=== PATIENT | female | born 1985 | race Asian ===

== ENCOUNTER → 2018-06-11 11:23 | Outpatient (CLI) | payer BC, SELFPAY ==
[2018-06-11 12:11] LABS: Monoscreen (Rapid) Negative (Negative)
[2018-06-11 12:24] LABS: Basophils % 0.5 % (0.1-2.0); Eosinophils # 0.1 K/mm3 (0.0-0.4); Eosinophils % 0.9 % (0.1-12.0); Hematocrit 42.1 % (37.0-47.0); Hemoglobin 14.3 g/dL (12.2-16.2); Lymphocytes # 0.9 K/mm3 (0.7-4.5); Lymphocytes % 16.1 K/mm3 (10-50); Mean Corpuscular HGB Conc 33.9 g/dL (31.8-35.4); Mean Corpuscular Hemoglobin 29.9 pg (27.0-31.2); Mean Corpuscular Volume 88.3 fl (81-99); Mean Platelet Volume 7.3 fl (7.4-10.4); Monocytes # 0.3 K/mm3 (0.1-1.0); Monocytes % 5.5 % (1.7-9.3); Neutrophils # 4.5 K/mm3 (1.8-7.8); Neutrophils % 77.1 % (37.0-80.0); Platelet Count 225 K/mm3 (142-424); Red Blood Count 4.76 M/mm3 (4.20-5.40); Red Cell Distribution Width 13.1 % (11.5-17.5); White Blood Count 5.8 K/mm3 (4.8-10.8)
[2018-06-11 12:46] LABS: Alanine Aminotransferase 43 U/L (12-78); Albumin Level 3.5 gm/dL (3.4-5.0); Albumin/Globulin Ratio 1.1 (1.1-1.8); Alkaline Phosphatase 78 U/L (46-116); Anion Gap 9.9 mEq/L (5-15); Aspartate Amino Transferase 18 U/L (15-37); Bilirubin,Total 0.7 mg/dL (0.2-1.0); Blood Urea Nitrogen 6 mg/dL (7-18); Calcium 8.7 mg/dL (8.5-10.1); Carbon Dioxide 29 mmol/L (21.0-32.0); Chloride 106 mmol/L (98-107); Creatinine,Serum 0.73 mg/dL (0.55-1.02); Estimated Glomerular Filt Rate 91 ml/min (>60); GFR (African American) 110 ML/MIN (>60); Globulin 3.3 gm/dl (1.3-3.2); Glucose 94 mg/dL (74-106); Potassium 3.9 mmoL/L (3.5-5.1); Sodium 141 mmol/L (136-145); Total Protein,Serum 6.8 gm/dL (6.4-8.2)
[2018-06-13 07:29] LABS: Epstein-Barr Virus Early Ag Ab <9.0 U/mL (0.0-8.9)
== END ==
PROVIDERS: PCP Emergency Medicine; Visit Provider Nurse Practitioner Family
DX: R59.9 Enlarged lymph nodes, unspecified (principal)
CPT/HCPCS: 36415; 80053; 85025; 86318; 86663

== ENCOUNTER → 2018-08-18 13:01 | Outpatient (CLI) | payer BC, SELFPAY ==
[2018-08-18 13:16] LABS: Basophils # 0.1 K/mm3 (0-0.2); Basophils % 1.1 % (0.1-2.0); Eosinophils # 0.4 K/mm3 (0.0-0.4); Eosinophils % 5.9 % (0.1-12.0); Hematocrit 49.3 % (37.0-47.0); Lymphocytes # 3.2 K/mm3 (0.7-4.5); Lymphocytes % 42.4 % (10-50); Mean Corpuscular HGB Conc 32.4 g/dL (31.8-35.4); Mean Corpuscular Hemoglobin 29.7 pg (27.0-31.2); Mean Corpuscular Volume 91.7 fl (81-99); Mean Platelet Volume 6.9 fl (7.4-10.4); Monocytes # 0.3 K/mm3 (0.1-1.0); Monocytes % 4.4 % (1.7-9.3); Neutrophils # 3.4 K/mm3 (1.8-7.8); Neutrophils % 46.2 % (37.0-80.0); Platelet Count 314 K/mm3 (142-424); Red Blood Count 5.38 M/mm3 (4.20-5.40); Red Cell Distribution Width 13.2 % (11.5-17.5); White Blood Count 7.5 K/mm3 (4.8-10.8)
[2018-08-18 16:29] LABS: Anion Gap 15.3 mEq/L (5-15); Blood Urea Nitrogen 7 mg/dL (7-18); Calcium 8.9 mg/dL (8.5-10.1); Carbon Dioxide 26 mmol/L (21.0-32.0); Chloride 101 mmol/L (98-107); Estimated Glomerular Filt Rate 95 ml/min (>60); GFR (African American) 115 ML/MIN (>60); Glucose 71 mg/dL (74-106); Potassium 4.3 mmoL/L (3.5-5.1); Sodium 138 mmol/L (136-145)
== END ==
PROVIDERS: Visit Provider Otolaryngology
DX: Z01.818 Encounter for other preprocedural examination (principal); L72.0 Epidermal cyst
CPT/HCPCS: 36415; 80048; 85025

== ENCOUNTER → 2020-01-09 13:46 | Outpatient (CLI) | payer BC, SELFPAY ==
[2020-01-09 17:37] LABS: Benzodiazepines Screen,Urine Negative ng/ml (<200)
[2020-01-09 17:38] LABS: Amphetamine/Metha Screen,Urine Negative ng/ml (<1000); Barbiturates Screen,Urine Negative ng/ml (<200)
[2020-01-09 17:39] LABS: Cannabinoid Screen,Urine Negative ng/ml (<50)
[2020-01-09 17:40] LABS: Cocaine Screen,Urine Negative ng/ml (<300); Methadone Screen,Urine Negative ng/ml (<300)
[2020-01-09 17:42] LABS: Opiate Screen,Urine Negative ng/ml (<300); Phencyclidine Screen,Urine Negative ng/ml (<25)
== END ==
PROVIDERS: Visit Provider Nurse Practitioner Family
DX: Z79.899 Other long term (current) drug therapy (principal)
CPT/HCPCS: 80305

== ENCOUNTER → 2020-08-19 14:29 | Outpatient (CLI) | payer BC, SELFPAY ==
--- NOTE | 2020-08-19 14:29 | MR_ITS ---
PROCEDURE: MR KNEE RT WO CON CLINICAL INDICATION: R knee pain knee pain and clicking in knee. knee locks up. pain when bending and extending. no prior. COMPARISON: No exams were available for comparison TECHNIQUE: Routine multiplanar multi echo sequences are performed without gadolinium enhancement. FINDINGS: Cruciate ligaments, collateral ligaments, quadriceps tendon and patellar tendon have an unremarkable appearance. No evidence meniscal tear. There is some minimal thinning of the patellar cartilage along its lower and lateral aspect with some subchondral cystic changes in the posterior aspect of the patella at this area. There is a small amount fluid in the knee joint. The patellofemoral ligaments appear intact. IMPRESSION: 1. No evidence of internal derangement. 2. There is some thinning of the patellar cartilage inferiorly and laterally with some subchondral cystic changes of the patella at this area consistent with some mild osteoarthritic change. Minimal amount fluid noted within the knee joint. Dictated by: Lionel Munoz MD 08/21/2020 09:23 Lionel Munoz MD in [place] 08/21/2020 09:23
== END ==
PROVIDERS: PCP Nurse Practitioner Family; Visit Provider Nurse Practitioner Family
DX: M25.561 Pain in right knee (principal)
CPT/HCPCS: 73721

== ENCOUNTER → 2020-08-31 14:53 | Outpatient (CLI) | payer BC, SELFPAY ==
--- NOTE | 2020-08-31 14:56 | XR_ITS ---
PROCEDURE: XR KNEE RT 4V CLINICAL INDICATION: right knee pain COMPARISON: No exams were available for comparison FINDINGS: No fracture or dislocation. No lytic or blastic change. There is normal mineralization. The joint spaces are well-preserved. No significant degenerative/arthritic changes. No erosive changes evident. Other findings:None. IMPRESSION: No acute findings. Dictated by: Dr. Jarad Holder MD 08/31/2020 15:29 Dr. Jarad Holder MD in [place] 08/31/2020 15:29
== END ==
PROVIDERS: PCP Emergency Medicine; Visit Provider Orthopaedic Surgery
DX: M25.561 Pain in right knee (principal)
CPT/HCPCS: 73564

== ENCOUNTER → 2021-10-25 08:38 | Outpatient (CLI) | payer BC, SELFPAY ==
--- NOTE | 2021-10-25 08:46 | US_ITS ---
FINAL REPORT CLINICAL HISTORY: HYPERTHYROIDISM FINDINGS: THYROID ULTRASOUND Sonographic images of the thyroid was obtained. The right lobe of the thyroid measures 1.8 x 4.6 x 2.0 cm. The left lobe of the thyroid measures 1.3 x 4.4 x 1.7 cm. The isthmus measures 5 mm. There are multiple bilateral hypoechoic nodules: There is a dominant nodule in the right lobe measuring 1.5 x 1.1 x 1.2 cm, TI-RADS 4. There is a 4 x 4 x 2 mm nodule in the left lobe, TI-RADS 4. There is a 4 x 4 x 3 mm nodule in the left lobe, TI-RADS 4. There is a 7 x 6 x 5 mm nodule in the left lobe, TI-RADS 4. IMPRESSION: Multiple bilateral nodules as described. Recommend biopsy for the dominant nodule in the right lobe. No follow-up required for the left lobe nodules. Reviewed, Interpreted and Dictated by Billy Lanitgua MD Transcribed by Shavonne Ellis Authenticated by Billy Lantigua MD on 10/25/2021 11:17:16 AM [facility]
== END ==
PROVIDERS: PCP Nurse Practitioner Family; Visit Provider Nurse Practitioner Family
DX: E05.90 Thyrotoxicosis, unspecified without thyrotoxic crisis or storm (principal)
CPT/HCPCS: 76536

== ENCOUNTER → 2021-11-08 08:13 | Outpatient (CLI) | payer BC, SELFPAY ==
--- NOTE | 2021-11-08 | US_ITS ---
FINAL REPORT CLINICAL HISTORY: .fna rt thyroid-- evi drake FINDINGS: Ultrasound guided thyroid biopsy. HISTORY: Thyroid mass. PROCEDURE: After informed consent was obtained and a time-out was performed, the patient was prepped and draped in usual sterile fashion over the anterior right neck. Utilizing local anesthesia and sterile technique with a 25-gauge needle, access to the lesion was obtained. Four passes were made. The patient received no conscious sedation. The patient tolerated procedure well and left the department in good condition. IMPRESSION: Status post ultrasound guided biopsy of a thyroid nodule without immediate complication. Reviewed, Interpreted and Dictated by Kurtis Wood III, MD Transcribed by MARCIAL Virgen Authenticated by Kurtis Wood III, MD on 11/08/2021 11:42:[address] [facility]
== END ==
PROVIDERS: PCP Nurse Practitioner Family; Visit Provider Nurse Practitioner Family
DX: E04.1 Nontoxic single thyroid nodule (principal)
CPT/HCPCS: 10005; 76536

== ENCOUNTER → 2022-06-07 10:30 | Outpatient (CLI) | payer BC, SELFPAY ==
--- NOTE | 2022-06-07 10:33 | XR_ITS ---
FINAL REPORT CLINICAL HISTORY: rt shoulder pain, no injury FINDINGS: Right shoulder Four views were obtained. There is no acute fracture or dislocation. The joint spaces appear normal. No soft tissue abnormality is identified. IMPRESSION: No acute process. Reviewed, Interpreted and Dictated by Kurtis Wood III, MD Transcribed by Marlen Johnson Authenticated and [facility]
== END ==
PROVIDERS: PCP Emergency Medicine; Visit Provider Orthopaedic Surgery
DX: M25.511 Pain in right shoulder (principal)
CPT/HCPCS: 73030

== ENCOUNTER → 2022-06-21 09:32 | Outpatient (CLI) | payer BC, SELFPAY ==
--- NOTE | 2022-06-21 09:32 | MR_ITS ---
FINAL REPORT CLINICAL HISTORY: rt shoulder pain WITH PAIN RADIATING UP NECK AND DOWN ARM TO ELBOW. NO INJURY OR TRAUMA. PAIN WHEN MOVING ARM. WEAKNESS IN ARM. FINDINGS: Multiplanar MR imaging of the right shoulder was performed without contrast. There is a partial thickness articular surface tear of the supraspinatus tendon involving less than 50%. No full-thickness rotator cuff tear is identified. There is mild AC joint arthrosis. A small amount of fluid is seen in the subacromial/subdeltoid bursa. The glenoid labrum is intact. The long head of the biceps tendon is intact. No significant glenohumeral joint effusion is seen. There is no evidence of fracture or dislocation. The musculature is intact. There is no evidence of soft tissue mass. IMPRESSION: Partial thickness articular surface tear of the supraspinatus tendon. Reviewed, Interpreted and Dictated by Kurtis Wood III, MD Transcribed by Marlen Johnson Authenticated and [facility]
== END ==
PROVIDERS: PCP Emergency Medicine; Visit Provider Physician Assistant Surgical
DX: M75.41 Impingement syndrome of right shoulder (principal)
CPT/HCPCS: 73221

== ENCOUNTER 2022-07-20 08:00 | Outpatient (RCR) | payer BC, SELFPAY ==
--- NOTE | 2022-06-30 11:30 | HMH.OTOPEV ---
OT Inpatient Evaluation Rehab OT Outpatient Eval Start: 06/30/22 11:20 Freq: Status: Active Protocol: Document 06/30/22 11:20 ARNOLDO (Rec: 06/30/22 11:29 ARNOLDO [id number]) E-signed By Fortino Schroeder, OT Outpatient Therapy Subjective History Subjective History Pt is a 37 year old female who reports to therapy for initial evaluation. Pt explains her right shoulder ( dominant side) became painful in May 2022 without any type of injury. Pt did seek ortho consult and was provided a steroid injection in the right shoulder on 06/07/22. She did not have relief with the injection. She received a MRI on 06/21/22 with the dx of Partial thickness articular surface tear of the supraspinatus tendon. Pt was then referred to outpatient OT services. Pt does demonstrate with decreased AROM and strength at right shoulder. She also reports her pain remains at a 7/10 majority of the time. Pt will continue to be seen twice a week in order to tx right shoulder deficits. Chief Complaint Pain,Stiff,Weakness Symptom Type Ache,Throb,Sharp,Dull Symptoms Relieved By Nothing Symptoms Aggravated By Physical Activity,Lifting Prior Functional Limitations None Current Functional Limitations Reaching,Lifting,Housework, Driving,Sleeping,Recreation Activity Symptom Description Constant but Variable Level of pain today (0-10) 7 Pain scale - at its best (0-10) 5 Pain scale - at its worst (0-10) 10 Shoulder/Elbow Eval Shoulder Objective Measurements Shoulder ROM Right Shoulder Abduction Active Range of 85 degrees Motion (degrees) Shoulder Flexion Active Range of Motion 100 degrees (degrees) Query Text: Shoulder External Rotation Active Range 30 degrees of Motion (degrees) Shoulder Internal Rotation Active Range 20 degrees of Motion (degrees) pain with active ROM shoulder exam right standard pain with passive ROM shoulder exam right
== END 2022-07-20 08:05 | disposition home or self-care (01) ==
LOC: OT 08:00
PROVIDERS: PCP Emergency Medicine; Visit Provider Orthopaedic Surgery
DX: M75.111 Incomplete rotator cuff tear or rupture of right shoulder, not specified as traumatic (principal)
CPT/HCPCS: 97010; 97014; 97035; 97110; 97140; 97166; G0283

== ENCOUNTER → 2022-07-27 07:32 | Outpatient (CLI) | payer BC, SELFPAY ==
--- NOTE | 2022-07-27 07:32 | MR_ITS ---
FINAL REPORT CLINICAL HISTORY: Neck pain, right arm numbness x2 months. no injury FINDINGS: Multiplanar MR imaging of the cervical spine was performed without contrast. On the sagittal T2-weighted images, disc degeneration is seen at multiple levels. There is no evidence of fracture. There is kyphosis centered at C4-5. The cervical spinal cord has an unremarkable appearance without evidence of mass, edema or syrinx. No significant canal stenosis is identified. The cervicomedullary junction is normal. C2-3: There is no significant canal stenosis or neural foraminal narrowing. C3-4: There is no significant canal stenosis or neural foraminal narrowing. C4-5: There is a severe right uncovertebral osteophyte. There is mild right neural foraminal narrowing. C5-6: There is a disc osteophyte complex. There is severe right and mild left neural foraminal narrowing. C6-7: There is no significant canal stenosis or neural foraminal narrowing. C7-T1: There is no significant canal stenosis or neural foraminal narrowing. Incidental note is made of multiple cystic nodules in the thyroid. IMPRESSION: Multilevel degenerative disc disease most pronounced at the C4-5 and C5-6. Reviewed, Interpreted and Dictated by Kurtis Wodo III, MD Transcribed by Carrol Peres Authenticated and [facility]
== END ==
PROVIDERS: PCP Emergency Medicine; Visit Provider Physician Assistant Surgical
DX: M54.12 Radiculopathy, cervical region (principal)
CPT/HCPCS: 72141; 76376

== ENCOUNTER → 2023-01-03 23:30 | Outpatient (CLI) | payer BC, SELFPAY | PROVIDERS: PCP Student in an Organized Health Care Education/Training Program; Visit Provider Student in an Organized Health Care Education/Training Program | DX: J32.9 Chronic sinusitis, unspecified (principal) | CPT/HCPCS: 87070 ==

== ENCOUNTER → 2023-05-30 23:23 | Outpatient (CLI) | payer BC, SELFPAY ==
[2023-05-30 18:13] LABS: Basophils # 0.1 K/mm3 (0-0.2); Basophils % 1.2 % (0.1-2.0); Eosinophils # 0.3 K/mm3 (0.0-0.4); Eosinophils % 3.9 % (0.1-12.0); Hematocrit 48.3 % (37.0-47.0); Hemoglobin 15.5 g/dL (12.2-16.2); Lymphocytes # 2.7 K/mm3 (0.7-4.5); Lymphocytes % 38.6 % (10-50); Mean Corpuscular HGB Conc 32.1 g/dL (31.8-35.4); Mean Corpuscular Hemoglobin 29.2 pg (27.0-31.2); Mean Platelet Volume 8.6 fl (7.4-10.4); Monocytes # 0.3 K/mm3 (0.1-1.0); Monocytes % 4.8 % (1.7-9.3); Neutrophils # 3.6 K/mm3 (1.8-7.8); Neutrophils % 51.5 % (37.0-80.0); Platelet Count 343 K/mm3 (142-424); Red Cell Distribution Width 13.1 % (11.5-17.5)
[2023-05-30 18:34] LABS: Alanine Aminotransferase 104 U/L (12-78); Albumin Level 4.3 g/dl (3.5-5.0); Albumin/Globulin Ratio 1.3 (1.1-1.8); Alkaline Phosphatase 85 U/L (38-126); Anion Gap 15.7 mEq/L (5-15); Aspartate Amino Transferase 67 U/L (14-36); Bilirubin,Total 0.6 mg/dl (0.2-1.3); Blood Urea Nitrogen 9 mg/dl (7-17); Calcium 9.1 mg/dl (8.4-10.2); Carbon Dioxide 24 mmol/L (22.0-30.0); Chloride 106 mmol/L (98-107); Chol/HDL Ratio 7.3 (1-3.5); Cholesterol 284 mg/dl (140-200); Estimated Glomerular Filt Rate 111 ml/min (>60); GFR (African American) 134 ML/MIN (>60); Globulin 3.3 g/dL (1.3-3.2); Glucose 122 mg/dl (74-100); HDL Cholesterol 39 mg/dl (40-60); Potassium 4.7 mmoL/L (3.5-5.1); Sodium 141 mmol/L (136-145); Total Protein,Serum 7.6 g/dl (6.3-8.2); Triglycerides 301 mg/dl (30-150); VLDL Cholesterol 60 mg/dL (0-40)
[2023-05-30 18:46] LABS: Direct LDL Cholesterol 179.52 mg/dL (100-129)
[2023-05-30 18:52] LABS: 25-OH Vitamin D, Total 24.9 ng/mL (30-100); Free T4 (Free Thyroxine) 1.21 ng/dl (0.78-2.19)
[2023-05-30 19:05] LABS: Thyroid Stimulating Hormone 0.58 uIU/mL (0.465-4.68)
== END ==
PROVIDERS: PCP Student in an Organized Health Care Education/Training Program; Visit Provider Student in an Organized Health Care Education/Training Program
DX: E66.9 Obesity, unspecified (principal); E55.9 Vitamin D deficiency, unspecified; Z13.29 Encounter for screening for other suspected endocrine disorder; Z68.31 Body mass index [BMI] 31.0-31.9, adult; Z79.899 Other long term (current) drug therapy
CPT/HCPCS: 80053; 80061; 82306; 84439; 84443; 85025

== ENCOUNTER → 2023-06-01 09:16 | Outpatient (CLI) | payer BC, SELFPAY ==
[2023-06-02 10:12] LABS: HBsAg Screen Negative (Negative); HCV Ab Non Reactive (Non Reactive); Hep A Ab, IGM Negative (Negative); Hep B Core Ab, IgM Negative (Negative)
== END ==
PROVIDERS: PCP Student in an Organized Health Care Education/Training Program; Visit Provider Student in an Organized Health Care Education/Training Program
DX: R74.8 Abnormal levels of other serum enzymes (principal)
CPT/HCPCS: 36415; 80074

== ENCOUNTER 2023-06-11 18:02 | Emergency (ER) | payer BC, SELFPAY ==
[2023-06-11 18:03] VITALS: BP 164/96; PULSE 99; RESP 16; TEMP 36.5; O2SAT 100; BMI 32.5
[2023-06-11 18:36] LABS: Microscopic, Urine URINE MICROSCOPIC (MICROSCOPIC)
[2023-06-11 18:38] LABS: Appearance,Urine CLEAR (Clear); Bilirubin,Urine Negative (Negative); Blood, Urine TRACE-I (Negative); Color,Urine YELLOW (Yellow); Glucose,Urine (UA) Negative (Negative); Ketones,Urine Negative (Negative); Leukocyte Esterase,Urine Negative (Negative); Nitrate,Urine Negative (Negative); Protein,Urine Negative (Negative); Specific Gravity, Urine 1.025 (1.005-1.030); Urobilinogen,Urine 0.2 EU/dl (0.2)
[2023-06-11 18:39] LABS: Chloride 104 mmol/L (98-107); Sodium 138 mmol/L (136-145)
[2023-06-11 18:40] LABS: Basophils # 0.1 K/mm3 (0-0.2); Basophils % 0.9 % (0.1-2.0); Eosinophils # 0.3 K/mm3 (0.0-0.4); Eosinophils % 3.3 % (0.1-12.0); Hematocrit 46.3 % (37.0-47.0); Hemoglobin 15.5 g/dL (12.2-16.2); Lymphocytes # 4.7 K/mm3 (0.7-4.5); Lymphocytes % 47.8 % (10-50); Mean Corpuscular HGB Conc 33.4 g/dL (31.8-35.4); Mean Corpuscular Hemoglobin 29.9 pg (27.0-31.2); Mean Corpuscular Volume 89.4 fl (81-99); Mean Platelet Volume 7.6 fl (7.4-10.4); Monocytes # 0.3 K/mm3 (0.1-1.0); Monocytes % 3.5 % (1.7-9.3); Neutrophils # 4.4 K/mm3 (1.8-7.8); Neutrophils % 44.6 % (37.0-80.0); Platelet Count 304 K/mm3 (142-424); Red Blood Count 5.18 M/mm3 (4.20-5.40); Red Cell Distribution Width 13.2 % (11.5-17.5); White Blood Count 9.9 K/mm3 (4.8-10.8)
[2023-06-11 18:41] LABS: Alanine Aminotransferase 94 U/L (12-78); Aspartate Amino Transferase 57 U/L (14-36); Blood Urea Nitrogen 15 mg/dl (7-17); Creatinine Clearance Estimated 149 mL/min (50-200); Estimated Glomerular Filt Rate 111 ml/min (>60); GFR (African American) 134 ML/MIN (>60)
[2023-06-11 18:42] LABS: Albumin Level 4.3 g/dl (3.5-5.0); Albumin/Globulin Ratio 1.2 (1.1-1.8); Alkaline Phosphatase 63 U/L (38-126); Anion Gap 11.6 mEq/L (5-15); Bilirubin,Total 0.4 mg/dl (0.2-1.3); Calcium 8.9 mg/dl (8.4-10.2); Carbon Dioxide 26 mmol/L (22.0-30.0); Globulin 3.5 g/dL (1.3-3.2); Glucose 150 mg/dl (74-100); Potassium 3.6 mmoL/L (3.5-5.1); Total Protein,Serum 7.8 g/dl (6.3-8.2)
--- NOTE | 2023-06-11 18:43 | CT_ITS ---
PROCEDURE INFORMATION: Exam: CT Abdomen And Pelvis Without Contrast Exam date and time: 06/11/2023 6:51 PM Age: 38 years old Clinical indication: Abdominal pain; Flank; Right; Prior surgery; Surgery date: 6+ months; Surgery type: Total abdominal hysterectomy. ; Additional info: Rlq/flank pain (h/o jj) TECHNIQUE: Imaging protocol: Computed tomography of the abdomen and pelvis without contrast. Radiation optimization: All CT scans at this facility use at least one of these dose optimization techniques: automated exposure control; mA and/or kV adjustment per patient size (includes targeted exams where dose is matched to clinical indication); or iterative reconstruction. REPORTING DATA: Count of CT and Cardiac NM exams in prior 12 months: This patient has received 0 known CTs and 0 known cardiac nuclear medicine studies in the 12 months prior to the current study. COMPARISON: No relevant prior studies available. FINDINGS: Liver: Hepatic steatosis Gallbladder and bile ducts: Gallbladder contracted Pancreas: Pancreas unremarkable Spleen: The spleen is unremarkable. Accessory splenic nodule Adrenal glands: Adrenal glands unremarkable. Kidneys and ureters: No hydronephrosis. Stomach and bowel: Mild-moderate stool burden Appendix: Appendix unremarkable Intraperitoneal space: Unremarkable. No free air. No significant fluid collection. Vasculature: Unremarkable. No abdominal aortic aneurysm. Lymph nodes: Nonspecific inguinal lymph nodes Urinary bladder: Mild thickening of the bladder wall may reflect incomplete distension. Could not exclude changes of cystitis. Reproductive: Unremarkable as visualized. Bones/joints: Unremarkable. No acute fracture. Soft tissues: Fat filled umbilical hernia IMPRESSION: 1. Mild thickening of the bladder wall may reflect incomplete distension. Could not exclude changes of cystitis. 2. No evidence of acute abnormality.
--- NOTE | 2023-06-11 18:43 | HMH.EDGENADL ---
Discharge Plan Disposition Patient Disposition: Home, Self-Care Prescriptions Prescriptions: No Action levocetirizine [Xyzal] 5 mg tablet 5 mg PO DAILY meclizine 25 mg tablet 25 mg PO DAILY PRN ibuprofen 800 mg tablet 800 mg PO Q8H Qty: 14 0RF phentermine [Adipex-P] 37.5 mg tablet 37.5 mg PO DAILY Qty: 30 0RF Rx Instructions: must administer 30 minutes before or 1-2 hours after breakfast atorvastatin 10 mg tablet 10 mg PO DAILY Qty: 90 3RF cholecalciferol (vitamin D3) 25 mcg (1,000 unit) capsule 25 mcg PO DAILY Qty: 90 3RF Referrals Follow up/Referrals: Kurtis Hoffmann MD [Staff Physician] - See instructions (follow up RUQ abd pain, elevated Tbili and AST ) Abigail Faustin PA [Primary Care Provider] - See instructions Activity Restrictions/Add. Instructions Additional Instructions/Restrictions: There remains diagnostic uncertainty with your evaluation today no emergent medical condition was identified specifically no evidence of a kidney stone infection cholecystitis etc. However there is mild elevation in her AST and her total bilirubin which could suggest underlying hepatobiliary abnormalities please follow-up with a general surgeon if your symptoms do not completely resolve. Return to the emergency department in 12 to 24 hours with any significant worsening of your symptoms. Clinical Impressions Clinical Impression: Acute right flank pain, Elevated transaminase level, Hyperbilirubinemia Instructions Patient Instructions: DI for Acute Abdominal Pain Discharge ED Provider: Colton Quinones General Adult HPI General Chief complaint: Abdominal Pain Stated complaint: Lwer RT abd pain Time Seen by Provider: 06/11/23 18:37 Mode of Arrival: Ambulatory Source of Information: Patient Limitations: No Limitations Description of Symptoms (Recalled from ER Triage Doc. by RN): Presents to ED with c/o RLQ and flank pain that start early this morning and has progressively gotten worse. Denies: fever, hx of kidney stones, or any urinary symptoms. +Mckenzie Tamez reports taking 800mg of Ibuprofen at 0900 with no relief. History of Present Illness HPI narrative: Patient is a 38-year-old female here with right flank and right lower quadrant abdominal pain that began early this morning has been intermittently worsening throughout the day and is gotten severe at times. Is been very colicky and paroxysmal. No history of ovarian problems has had a partial hysterectomy but still has her ovaries. No history of appendicitis kidney stone or ovarian torsion or cyst in the past. No vaginal bleeding vaginal discharge urinary symptoms including dysuria urgency frequency or hematuria. No fevers or chills. Related Data Home Medications Medication Instructions Recorded Confirmed levocetirizine 5 mg tablet (Xyzal) 5 mg PO DAILY 05/16/23 06/05/23 meclizine 25 mg tablet 25 mg PO DAILY PRN 05/16/23 06/05/23 Previous Rx's Medication Instructions Recorded ibuprofen 800 mg tablet 800 mg PO Q8H #14 tabs 05/30/23 atorvastatin 10 mg tablet 10 mg PO DAILY #90 tabs 05/31/23 cholecalciferol (vitamin D3) 25 25 mcg PO DAILY #90 caps 05/31/23 mcg (1,000 unit) capsule phentermine 37.5 mg tablet 37.5 mg PO DAILY #30 tabs 06/05/23 (Adipex-P) Allergies Allergy/AdvReac Type Severity Reaction Status Date / Time pineapple Allergy Intermediate I-HIVES Verified 06/05/23 08:19 vancomycin Allergy Intermediate I-HIVES/CHUY Verified 06/05/23 08:19 H cat dander Allergy Unknown Unknown Verified 06/05/23 08:19 allergy reaction cold Allergy Intermediate Hives Uncoded 06/05/23 08:19 PFSH PFS Disclaimer: The information contained in this section may have been updated after the patient was seen, as this information can be updated by other users. Medical History Dysfunction of right rotator cuff Sore throat Vertigo Surgical History (Reviewed
--- NOTE | 2023-06-11 18:52 | PC.NURSE ---
pt in ct
[2023-06-11 18:53] LABS: RBC,Urine Occasional #/hpf (0-3); Squamous Epithelial Cell,Urine Occasional #/hpf (0-5); WBC,Urine Occasional #/hpf (0-3)
--- NOTE | 2023-06-11 18:54 | PC.NURSE ---
PT BACK FROM CT
[2023-06-11 19:00] VITALS: BP 164/87; PULSE 67; O2SAT 98
--- NOTE | 2023-06-11 19:40 | PC.NURSE ---
Rounded on patient, patient reports no relief in pain at this time. Pain /10. Requested patient ensure safe transportation home if discharged. Notified provider of continued pain. Orders received.
--- NOTE | 2023-06-11 19:46 | PC.NURSE ---
patient assisted to bathroom
[2023-06-11 20:21] VITALS: BP 165/96; PULSE 63; RESP 20; TEMP 37.1; O2SAT 99
== END 2023-06-11 20:41 | disposition home or self-care (01) ==
PROVIDERS: Emergency Provider Student in an Organized Health Care Education/Training Program; PCP Physician Assistant
DX: R10.31 Right lower quadrant pain (principal); M54.59 Other low back pain; R74.01 Elevation of levels of liver transaminase levels; F17.210 Nicotine dependence, cigarettes, uncomplicated
CPT/HCPCS: 74176; 80053; 81001; 85025; 96361; 96374; 96375; 99285; J2405

== ENCOUNTER → 2023-06-14 08:47 | Outpatient (CLI) | payer BC, SELFPAY ==
--- NOTE | 2023-06-14 08:48 | US_ITS ---
FINAL REPORT CLINICAL HISTORY: Right upper quad pain and nausea COMPARISON: None FINDINGS: Sonographic images of the right upper quadrant were obtained. The pancreas is partially obscured. Liver is fatty infiltrated. The gallbladder appears normal without evidence of gallstones.There is no evidence of biliary ductal dilatation.The common duct measures 2 mm. Limited images of the right kidney are unremarkable. IMPRESSION: Fatty liver. Reviewed, Interpreted and Dictated by Kurtis Wood III, MD Transcribed by Valencia Barton Authenticated and [facility]
[2023-06-14 10:32] LABS: Alanine Aminotransferase 85 U/L (12-78); Albumin Level 4.4 g/dl (3.5-5.0); Albumin/Globulin Ratio 1.4 (1.1-1.8); Alkaline Phosphatase 73 U/L (38-126); Aspartate Amino Transferase 51 U/L (14-36); Bilirubin,Total 0.5 mg/dl (0.2-1.3); Blood Urea Nitrogen 11 mg/dl (7-17); Calcium 8.9 mg/dl (8.4-10.2); Carbon Dioxide 27 mmol/L (22.0-30.0); Chloride 104 mmol/L (98-107); Estimated Glomerular Filt Rate 111 ml/min (>60); GFR (African American) 134 ML/MIN (>60); Globulin 3.2 g/dL (1.3-3.2); Glucose 125 mg/dl (74-100); Sodium 138 mmol/L (136-145); Total Protein,Serum 7.6 g/dl (6.3-8.2)
== END ==
PROVIDERS: PCP Physician Assistant; Visit Provider Surgery
DX: R10.9 Unspecified abdominal pain (principal); R11.2 Nausea with vomiting, unspecified
CPT/HCPCS: 36415; 76705; 80053

== ENCOUNTER → 2023-06-23 09:42 | Outpatient (CLI) | payer BC, SELFPAY ==
--- NOTE | 2023-06-23 09:43 | NM_ITS ---
FINAL REPORT CLINICAL HISTORY: right upper quad pain 10:00 am 8.60 mci tc choletec 11:15 am 1.5 mcg of cck inected into lt ant pt had pain during cck COMPARISON: None FINDINGS: Sequential anterior projection images of the abdomen were obtained after the intravenous injection of 8.6 mCi technetium 99m Choletec. There is normal uptake of radiotracer by the liver. The bile ducts are visualized by 5 minutes. Gallbladder activity is seen by 10 minutes. Bowel activity is noted by 20 minutes. After 1 hour, 1.5 ?g of CCK was injected intravenously for calculation of gallbladder ejection fraction. The gallbladder ejection fraction is 99%, which is within normal limits. IMPRESSION: No evidence of cystic duct or bile duct obstruction. Normal gallbladder ejection fraction of 99%. Reviewed, Interpreted and Dictated by Kurtis Wood III, MD Transcribed by Bella Taylor Authenticated and [facility]
== END ==
PROVIDERS: PCP Physician Assistant; Visit Provider Surgery
DX: R10.9 Unspecified abdominal pain (principal); R11.2 Nausea with vomiting, unspecified
CPT/HCPCS: 78227; A9537; J2805

== ENCOUNTER 2023-11-03 09:17 | Outpatient (CLI) | payer BC, SELFPAY ==
[2023-11-03 09:53] LABS: Prothrombin Time 9.8 seconds (10.1-12.5)
[2023-11-03 10:52] LABS: Alanine Aminotransferase 95 U/L (12-78); Albumin Level 4.5 g/dl (3.5-5.0); Albumin/Globulin Ratio 1.6 (1.1-1.8); Alkaline Phosphatase 81 U/L (38-126); Anion Gap 10.6 mEq/L (5-15); Aspartate Amino Transferase 59 U/L (14-36); Bilirubin,Total 0.5 mg/dl (0.2-1.3); Blood Urea Nitrogen 9 mg/dl (7-17); Calcium 9.4 mg/dl (8.4-10.2); Carbon Dioxide 28 mmol/L (22.0-30.0); Chloride 105 mmol/L (98-107); Estimated Glomerular Filt Rate 111 ml/min (>60); GFR (African American) 134 ML/MIN (>60); Globulin 2.9 g/dL (1.3-3.2); Glucose 116 mg/dl (74-100); Potassium 4.6 mmoL/L (3.5-5.1); Sodium 139 mmol/L (136-145); Total Protein,Serum 7.4 g/dl (6.3-8.2)
[2023-11-07 10:23] LABS: Fibrosis Score 0.12; Fibrosis Stage F0-NO FIBROSIS; NASH Grade N2; NASH Score 0.52; Steatosis Grade S2-S3; Steatosis Score 0.84
[2023-11-07 10:24] LABS: Alpha 2-Macroglobulins, Qn 266; Apolipoprotein A-1 130; Bilirubin, Total <0.1; Haptoglobin 218
[2023-11-07 10:25] LABS: ALT (SGPT) P5P 92; AST (SGOT) P5P 53; GGT 107
[2023-11-07 10:26] LABS: Cholesterol, Total 269; Glucose 113; Triglycerides 299
--- NOTE | 2023-11-19 03:18 | P.PNANES_ITS ---
[facility] Disclaimer: The information contained in this section may have been updated after the patient was seen, as this information can be updated by other users. Medical History Dysfunction of right rotator cuff Sore throat Vertigo Surgical History History of History of hysterectomy Hx of tonsillectomy Family History Other No significant family history Social History Smoking Status: Current every day smoker tobacco type: cigarettes packs per day: 1 alcohol intake: current substance use type: denies use current occupational status: employed Travel in the last 8 weeks: None household members: family housing: house current occupational exposures/hazards: No caffeine: No [facility] Anesthesia Checklist Patient Identification Patient Identification: Arm Band and Family Structural Data Admitted From: Home Planned Operative Procedure/s: Labor Epidural Consent for Planned Operative Procedure(s) Verified: Yes Verified Documents: Surgical Consent and History and Physical NPO Status Verified Time NPO: 00:00 Additional verifications Patient : Yes Anesthesia Reactions: Yes (PONV) Hx Blood Transfusions: Yes Blood Transfusion Reaction: No Cephalosporin Allergy: No Previous Colonoscopy: No Airway Assessment Mallampati Score:: Class II C-Spine Mobility Assessed: Yes TMJ Mobility Assessed: Yes Dentition: Good Dentition Neurological Assessment Level of Consciousness: Awake, Alert, Appropriate and Follows Commands Hx Seizures: No Numbness or tingling in extremities: No Anesthesia Plan ASA Class: II Anesthesia Type: Epidural
--- NOTE | 2023-11-20 06:44 | P.PNANES_ITS ---
[facility] Anesthesia Record Part I Anesthesia Record I Intake, IV Amount: 100 Hydration: Adequate Estimated blood loss (mL): 5 Urine output (mL): 0 Blood Products used (#): none Blood Pressure: 113/58 SaO2: 96 Pulse Rate: 69 Airway Patency: Patent Respiratory Rate: 24 Temperature: 97.2 F Patient is:: Drowsy and Stable Stable to PACU at:: 06:35
[2023-11-20 06:46] VITALS: BP 113/58; PULSE 69; RESP 24; TEMP 36.2; O2SAT 96
== END 2023-11-03 23:59 ==
LOC: LAB 09:18
PROVIDERS: PCP Student in an Organized Health Care Education/Training Program; Visit Provider Nurse Practitioner
DX: K76.0 Fatty (change of) liver, not elsewhere classified (principal); R10.9 Unspecified abdominal pain
CPT/HCPCS: 36415; 80053; 82105; 85610

== ENCOUNTER 2024-01-01 14:47 | Outpatient (CLI) | payer BC, SELFPAY ==
[2024-01-01 18:02] LABS: Adenovirus,PCR Not Detected (NotDetected); Coronavirus 19, PCR Not Detected (NotDetected); Coronavirus 229E Not Detected (NotDetected); Coronavirus NL63 Not Detected (NotDetected); Coronavirus OC43 Not Detected (NotDetected); Coronovirus HKU1,PCR Not Detected (NotDetected); Human Metapneumovirus Not Detected (NotDetected); Influenza A, PCR Not Detected (NotDetected); Influenza AH1, 2009 Not Detected (NotDetected); Influenza AH1, PCR Not Detected (NotDetected); Influenza AH3,PCR Not Detected (NotDetected); Influenza B, PCR Not Detected (NotDetected); Parainfluenza 1, PCR Not Detected (NotDetected); Parainfluenza 2, PCR Not Detected (NotDetected); Parainfluenza 3, PCR Not Detected (NotDetected); Parainfluenza 4, PCR Not Detected (NotDetected); Respiratory Syncytial Virus Not Detected (NotDetected); Rhinovirus/Enterovirus Not Detected (NotDetected)
== END 2024-01-01 23:59 | disposition home or self-care (01) ==
LOC: LAB.DROPOF 01-03 14:48
PROVIDERS: PCP Student in an Organized Health Care Education/Training Program; Visit Provider Student in an Organized Health Care Education/Training Program
DX: R05.1 Acute cough (principal); R50.9 Fever, unspecified; J02.9 Acute pharyngitis, unspecified; R09.89 Other specified symptoms and signs involving the circulatory and respiratory systems; R09.82 Postnasal drip; H66.92 Otitis media, unspecified, left ear
CPT/HCPCS: 87581; 87632; 87635; 87798

== ENCOUNTER 2024-09-06 11:31 | Emergency (ER) | payer MEDICAID, SELFPAY ==
[2024-09-06 12:00] VITALS: BP 140/100; PULSE 88; RESP 16; TEMP 36.7; O2SAT 98; BMI 31.2
--- NOTE | 2024-09-06 12:33 | ED_ITS ---
Discharge Plan Disposition Patient Disposition: Home, Self-Care Condition: Good Prescriptions Prescriptions: New metformin 500 mg tablet 500 mg PO BIDWMEAL Qty: 60 0RF No Action hydroxyzine HCl 25 mg tablet 25 mg PO HS Qty: 30 0RF metaxalone 800 mg tablet 800 mg PO TID PRN (Reason: muscle pain) Qty: 20 0RF Referrals Follow up/Referrals: Shira Cantu PA [Primary Care Provider] - See instructions Activity Restrictions/Add. Instructions Additional Instructions/Restrictions: You have been diagnosed with type 2 diabetes mellitus today. You need to follow-up at the first part of next week with your PCP as you need further baseline workup. I have started you on metformin and sent the prescription to your pharmacy. Be aware that you may experience loose stool as you start this medication. Turn to the ER for any worsening signs or symptoms as needed. Clinical Impressions Clinical Impression: New onset type 2 diabetes mellitus Stand Alone Forms Stand Alone Forms: Work/School Release Instructions Patient Instructions: DI for Hyperglycemia -- Adult Print Language Print Language: Faroese Discharge ED Provider: Colton Quinones General Adult HPI General Chief complaint: Hyper/Hypoglycemia Stated complaint: blood sugar 526 Time Seen by Provider: 09/06/24 12:31 History of Present Illness HPI narrative: Patient presents for evaluation of high blood sugar. Patient reports polyuria polydipsia since approximately July. She checked her blood sugar this week and noted it to be over 500. She utilized her 's fingerstick glucose monitor. She presented for evaluation. Patient has chest pain fever chills hemoptysis hematochezia melena nausea vomit diarrhea. She has no family history of diabetes. Related Data Previous Rx's ?Medication ?Instructions ?Recorded hydroxyzine HCl 25 mg tablet 25 mg PO HS #30 tabs 07/08/24 metaxalone 800 mg tablet 800 mg PO TID PRN muscle pain #20 07/15/24 tabs metformin 500 mg tablet 500 mg PO BIDWMEAL #60 tabs 09/06/24 Allergies Allergy/AdvReac Type Severity Reaction Status Date / Time pineapple Allergy Intermediate I-HIVES Verified 07/08/24 09:06 vancomycin Allergy Intermediate I-HIVES/CHUY Verified 07/08/24 09:06 H cat dander Allergy Unknown Unknown Verified 07/08/24 09:06 allergy reaction cold Allergy Intermediate Hives Uncoded 11/02/23 13:27 [facility] Disclaimer: The information contained in this section may have been updated after the patient was seen, as this information can be updated by other users. Medical History Vertigo Sore throat Dysfunction of right rotator cuff Surgical History History of hysterectomy Hx of tonsillectomy History of Family History Other No significant family history Social History Smoking Status: Current every day smoker tobacco type: cigarettes packs per day: 1 alcohol intake: current alcohol intake frequency: holidays/special occasions only substance use type: denies use current occupational status: employed Travel in the last 8 weeks: None household members: family housing: house current occupational exposures/hazards: No caffeine: No Other Medical History Have you received the Flu Vaccine for this season: Yes Have you received the Pneumonia Vaccine: No ROS Obtained: Yes Systems reviewed as appropriate & no additional complaints except as documented Physical Exam General General appearance: alert and in no apparent distress Respiratory Respiratory exam: Present normal lung sounds bilaterally Cardiovascular Cardiovascular exam: Present regular rate Neurological Exam Neurological exam: Present alert and oriented X3 Medical Decision Making Medical Records Medical records reviewed: Yes I reviewed the patient's medical records. Screening: Per USPSTF and CDC recommendations, given the prevalence of disease in our region, it is our hospital?s policy to screen for HIV and viral Hepatitis for all patients aged 18 and over and those with ongoing risk factors. [place] Inquiry Pt receiving controlled substance: No Vital Signs: 09/06/24 12:00 09/06/24 12:39 09/06/24 13:54 Temperature 98.0 F 98 F 97.9 F Temperature Source Temporal Artery Scan Oral Oral Pulse Rate 79 Pulse Rate [Left Radial] 72 Pulse Rate [Right] 88 Respiratory Rate 16 18 18 Blood Pressure 132/95 H Blood Pressure [Right Arm] 140/100 H 176/103 H Blood Pressure Mean [Right Arm] 113 127 Blood Pressure Source Automatic Cuff Blood Pressure Source [Right Arm] Automatic Cuff Blood Pressure Position Sitting Blood Pressure Position [Right Arm] Sitting 02 Sat by Pulse Oximetry 98 98 Oxygen Delivery Method Room Air Room Air Room Air Lab Data Lab results reviewed: Yes I reviewed the patient's lab results. Lab Results 09/06/24 12:30: WBC 8.1, RBC 5.57 H, Hgb 16.6 H, Hct 46.4, MCV 83.3, MCH 29.8, M CHC 35.8 H, RDW 11.9, Plt Count 300, MPV 10.0, Neut % (Auto) 49.1, Lymph % (Auto) 41.6, [place] % (Auto) 5.5, Eos % (Auto) 2.4, Baso % (Auto) 1.0, Neut # (Auto) 4.0, Lymph # (Auto) 3.4, [place] # (Auto) 0.4, Eos # (Auto) 0.2, Baso # (Auto) 0.1, Sodium 133 L, Potassium 4.0, Chloride 100, Carbon Dioxide 23, Anion Gap 14.0, BUN 8, Creatinine 0.60, Estimated Creat Clear 137, Estimated GFR 110, Est GFR ( Amer) 133, Glucose 330 H, Hemoglobin A1c 11.0 H, Calcium 9.6, Phosphorus 3.7, Magnesium 2.0, Total Bilirubin 0.8, AST 52 H, ALT 65, Alkaline Phosphatase 110, Total Protein 8.2, Albumin 4.7, Globulin 3.5 H, Albumin/Globulin Ratio 1.3, Acetone Level None detected, HIV Ag/Ab Combo Qual Negative 09/06/24 12:53: VBG pH 7.35, VBG pCO2 39.4, VBG pO2 41.3 H, VBG HCO3 21.1 L, VBG Total CO2 22.3 L, VBG O2 Saturation 81.3 H, VBG Base Excess -4.5 L, VBG Lactic Acid 2.0 09/06/24 12:30 09/06/24 12:30 Orders (Tests/Meds): ED MEDICATIONS Discontinued Medications Generic Name Dose Route Start Last Admin Trade Name Freq PRN Reason Stop Dose Admin Sodium Chloride 1,000 mls @ 999 mls/hr 09/06/24 12:53 09/06/24 14:05 Sod Chlor 0.9% 1000ml Bag IV 09/06/24 13:53 Not Given .Q1H1M ONE ORDERS Category Date Time Status Acetone, Serum (Rapid) Stat Lab 09/06/24 12:30 Completed CBC w/Auto Diff [Complete Blood Count Auto Diff] Stat Lab 09/06/24 12:30 Completed CMP [Comprehensive Metabolic Panel] Stat Lab 09/06/24 12:30 Completed HIV Combo Stat Lab 09/06/24 12:30 Completed Hemoglobin A1C Stat Lab 09/06/24 12:30 Completed Hep C Ab with Reflex to RNA Stat Lab 09/06/24 12:30 Received Magnesium Stat Lab 09/06/24 12:30 Completed Phosphorous Stat Lab 09/06/24 12:30 Completed VBG [Venous Blood Gas] Stat RT 09/06/24 12:53 Completed Medical Decision Narrative: In summary patient is a 39-year-old female who presents to the emergency department for evaluation of high blood sugar. Patient is initially slightly hypertensive with a blood pressure 140/100 heart rate 88 respiratory rate 16 satting at 98% on room air upon arrival, afebrile at 98.0.. Physical exam is remarkable for dry oral mucosa however she has normal breath sounds normal heart sounds no abdominal pain normal bowel sounds. Differential diagnosis includes hyperglycemia versus infection versus diabetes mellitus etc. Initial workup will be conducted with hematologic labs urinalysis. Initial interventions include slight bolus. Initial workup reviewed by me shows that her white count is normal with no left shift and a normal H&H, VBG shows a pH 7.35 and a venous lactic acid of 2.0, CMP is significant for pseudohyponatremia at 123 with a serum glucose today of 330 and hemoglobin A1c of 11 with remainder of her hematologic labs being nonactionable. Acetone is undetectable. Given this patient is appropriate for discharge with prescription for metformin and referral back to her PCP for ongoing evaluation and management within 48 hours. Critical Care Critical Care Time Critical Care Time: No
[2024-09-06 12:39] VITALS: BP 176/103; PULSE 72; RESP 18; TEMP 36.6; O2SAT 98; BMI 30.2
[2024-09-06 13:00] LABS: VBG Base Excess -4.5 mmol/L (-2.4-2.3); VBG HCO3 21.1 mmol/L (23-30); VBG Oxygen Saturation 81.3 % (50-70); VBG PCO2 39.4 mmol/L (35-51); VBG PH 7.35 mmol/L (7.31-7.41); VBG PO2 41.3 mmol/L (28-40); VBG Total CO2 22.3 mmol/L (23-27)
[2024-09-06 13:02] LABS: Basophils # 0.1 K/mm3 (0-0.2); Eosinophils # 0.2 K/mm3 (0.0-0.4); Eosinophils % 2.4 % (0.1-12.0); Hematocrit 46.4 % (37.0-47.0); Hemoglobin 16.6 g/dL (12.2-16.2); Lymphocytes # 3.4 K/mm3 (0.7-4.5); Lymphocytes % 41.6 % (10-50); Mean Corpuscular HGB Conc 35.8 g/dL (31.8-35.4); Mean Corpuscular Hemoglobin 29.8 pg (27.0-31.2); Mean Corpuscular Volume 83.3 fl (81-99); Monocytes # 0.4 K/mm3 (0.1-1.0); Monocytes % 5.5 % (1.7-9.3); Neutrophils % 49.1 % (37.0-80.0); Platelet Count 300 K/mm3 (142-424); Red Blood Count 5.57 M/mm3 (4.20-5.40); Red Cell Distribution Width 11.9 % (11.5-17.5); White Blood Count 8.1 K/mm3 (4.8-10.8)
[2024-09-06 13:04] LABS: Albumin Level 4.7 g/dl (3.5-5.0); Chloride 100 mmol/L (98-107)
[2024-09-06 13:05] LABS: Sodium 133 mmol/L (136-145)
[2024-09-06 13:07] LABS: Alanine Aminotransferase 65 U/L (12-78); Albumin/Globulin Ratio 1.3 (1.1-1.8); Aspartate Amino Transferase 52 U/L (14-36); Blood Urea Nitrogen 8 mg/dl (7-17); Carbon Dioxide 23 mmol/L (22.0-30.0); Creatinine Clearance Estimated 137 mL/min (50-200); Estimated Glomerular Filt Rate 110 ml/min (>60); GFR (African American) 133 ML/MIN (>60); Globulin 3.5 g/dL (1.3-3.2); Total Protein,Serum 8.2 g/dl (6.3-8.2)
[2024-09-06 13:08] LABS: Alkaline Phosphatase 110 U/L (38-126); Bilirubin,Total 0.8 mg/dl (0.2-1.3); Calcium 9.6 mg/dl (8.4-10.2); Glucose 330 mg/dl (74-100); Phosphorous 3.7 mg/dl (2.5-4.5)
[2024-09-06 13:09] LABS: Acetone, Serum (Rapid) None Detected (None Detect)
--- NOTE | 2024-09-06 13:30 | PC.NURSE ---
Per MARCILA Kelly pt. does not need liter of fluid and is okay to d/c.
[2024-09-06 13:54] VITALS: BP 132/95; PULSE 79; RESP 18; TEMP 36.6; O2SAT 97
[2024-09-06 13:54] LABS: HIV Combo NEGATIVE (Negative)
[2024-09-07 06:10] LABS: HCV Ab Non Reactive (Non Reactive)
== END 2024-09-06 14:00 | disposition home or self-care (01) ==
PROVIDERS: Physician Assistant; Emergency Provider Student in an Organized Health Care Education/Training Program; PCP Student in an Organized Health Care Education/Training Program
DX: E11.9 Type 2 diabetes mellitus without complications (principal); R19.7 Diarrhea, unspecified; R07.9 Chest pain, unspecified; R50.9 Fever, unspecified; R11.2 Nausea with vomiting, unspecified; R35.89 Other polyuria; R04.2 Hemoptysis; K92.1 Melena; I10 Essential (primary) hypertension; Z72.0 Tobacco use
CPT/HCPCS: 80053; 82009; 82803; 83036; 83735; 84100; 85025; 86803; 87389; 99283

== ENCOUNTER 2024-09-08 09:38 | Emergency (ER) | payer MEDICAID, SELFPAY ==
[2024-09-08] VITALS (10 sets, daily range): BP systolic 104–134; BP diastolic 59–94; PULSE 82–94; RESP 16–19; TEMP 36.6–36.7; O2SAT 96–98; BMI 29.2
--- NOTE | 2024-09-08 09:46 | ECG_ITS ---
APPROVED REPORT Exam: Resting ECG HR:88 bpm ECG Measurements Heart Rate 88 AXES PA 124 P 58 QRSd 86 QRS 42 QT 372 T 10 QTc 418 Conclusion SINUS RHYTHM POSSIBLE LEFT ATRIAL ENLARGEMENT [-0.1mV P-WAVE IN V1/V2] ST DEVIATION AND MODERATE T-WAVE ABNORMALITY, CONSIDER ANTEROLATERAL ISCHEMIA [-0.1+ mV T-WAVE IN V3-V6] ABNORMAL ECG Electronically signed by : DENZEL MOREIRA, 09/08/2024 15:30:18
--- NOTE | 2024-09-08 09:46 | HMH.EDGENADL ---
Discharge Plan Disposition Patient Disposition: Home, Self-Care Prescriptions Prescriptions: New promethazine 25 mg tablet 25 mg PO TID PRN (Reason: nausea and vomiting) Qty: 12 0RF Rx Instructions: Do not combine with other nausea medications No Action hydroxyzine HCl 25 mg tablet 25 mg PO HS Qty: 30 0RF metaxalone 800 mg tablet 800 mg PO TID PRN (Reason: muscle pain) Qty: 20 0RF metformin 500 mg tablet 500 mg PO BIDWMEAL Qty: 60 0RF Referrals Follow up/Referrals: Shira Cantu PA [Primary Care Provider] - See instructions Activity Restrictions/Add. Instructions Additional Instructions/Restrictions: At this time it was felt you are safe to be discharged home. If new or worsening symptoms please do not hesitate to return the emergency department. Please take your medications as prescribed and continue to monitor your blood sugars at home and take your metformin as it was prescribed. Please follow-up with your family doctor within the next week to modify your antihyperglycemic regimen. Clinical Impressions Clinical Impression: Vomiting, Hyperglycemia, Body aches Instructions Patient Instructions: DI for Diarrhea and Traveler's Diarrhea -- Adult, DI for Diarrhea and Traveler's Diarrhea -- Child, DI for Nausea -- Adult, DI for Nausea -- Child Print Language Print Language: Sinhala Discharge ED Provider: Tony Corral General Adult HPI General Chief complaint: Nausea/Vomiting/Diarrhea Stated complaint: body aches, vomiting, nausea Time Seen by Provider: 09/08/24 09:41 History of Present Illness HPI narrative: Patient is a 39-year-old female with past medical history of recently diagnosed diabetes who presents emergency department for evaluation of vomiting and epigastric discomfort. Onset was acute, over the last 24 hours. Patient has had multiple episodes of nonbloody vomiting, epigastric discomfort that she states feels like her gastritis that she has had previously. There is associated global headache and diffuse body aches. No reports of chest pain. No other acute complaints at this time. Related Data Previous Rx's ?Medication ?Instructions ?Recorded hydroxyzine HCl 25 mg tablet 25 mg PO HS #30 tabs 07/08/24 metaxalone 800 mg tablet 800 mg PO TID PRN muscle pain #20 07/15/24 tabs metformin 500 mg tablet 500 mg PO BIDWMEAL #60 tabs 09/06/24 promethazine 25 mg tablet 25 mg PO TID PRN nausea and 09/08/24 vomiting #12 tabs Allergies Allergy/AdvReac Type Severity Reaction Status Date / Time pineapple Allergy Intermediate I-HIVES Verified 07/08/24 09:06 vancomycin Allergy Intermediate I-HIVES/CHUY Verified 07/08/24 09:06 H cat dander Allergy Unknown Unknown Verified 07/08/24 09:06 allergy reaction cold Allergy Intermediate Hives Uncoded 11/02/23 13:27 [facility] Disclaimer: The information contained in this section may have been updated after the patient was seen, as this information can be updated by other users. Medical History Vertigo Sore throat Dysfunction of right rotator cuff Surgical History History of hysterectomy Hx of tonsillectomy History of Family History Other No significant family history Social History Smoking Status: Current every day smoker tobacco type: cigarettes packs per day: 1 alcohol intake: current alcohol intake frequency: holidays/special occasions only substance use type: denies use current occupational status: employed Travel in the last 8 weeks: None household members: family housing: house current occupational exposures/hazards: No caffeine: No Have you lived/traveled outside [place] in past 30 days?: No Contact w/someone who lives/traveled outside US past 30 days?: No Exposure to someone with infectious disease in past 14 days?: No Do you have a fever (greater than 100.4 F or 38 C)?: No Have you tested positive for COVID-19: No Exposed to someone with COVID-19 in past 14 days?: No Do you have a sore throat?: No Do you have a cough?: No Do you have any weakness?: No Do you have any diarrhea?: No Are you experiencing any unusual bleeding?: No Do you have any muscle aches/pain?: No Do you have any abdominal pain?: No Are you experiencing loss of taste or smell?: No Other Medical History Have you received the Flu Vaccine for this season: Yes Have you received the Pneumonia Vaccine: No ROS Obtained: Yes Systems reviewed as appropriate & no additional complaints except as documented Physical Exam General General appearance: alert and in no apparent distress Head Head exam: atraumatic and normocephalic Eye Eye exam: Present PERRL and EOMI ENT ENT exam: Present mucous membranes moist Neck Neck exam: Present normal inspection Chest Chest inspection: Present normal inspection and symmetric chest wall rise Respiratory Respiratory exam: Absent respiratory distress Cardiovascular Cardiovascular exam: Present regular rate and normal rhythm Abdominal Exam Abdominal exam: Present soft and tenderness (Mild, epigastric, no tenderness in the right upper quadrant or bilateral lower quadrants); Absent guarding or rebound Extremities Exam Extremities exam: Present normal inspection Neurological Exam Neurological exam: Present alert and CN II-XII intact; Absent motor sensory deficit Psychiatric Psychiatric exam: Present normal affect Skin Skin exam: Present warm and dry Medical Decision Making Medical Records Screening: Per USPSTF and CDC recommendations, given the prevalence of disease in our region, it is our hospital?s policy to screen for HIV and viral Hepatitis for all patients aged 18 and over and those with ongoing risk factors. [place] Inquiry Pt receiving controlled substance: No Vital Signs: 09/08/24 09:39 09/08/24 09:46 09/08/24 10:04 Temperature 98.0 F Temperature Source Oral Pulse Rate 84 89 Pulse Rate [Left Radial] 88 Respiratory Rate 19 Blood Pressure 133/87 114/72 Blood Pressure [Right Arm] 134/94 H Blood Pressure Mean [Right Arm] 107 02 Sat by Pulse Oximetry 98 97 96 Oxygen Delivery Method Room Air Room Air Room Air 09/08/24 10:15 09/08/24 10:30 09/08/24 10:45 Temperature Temperature Source Pulse Rate 85 87 88 Pulse Rate [Left Radial] Respiratory Rate Blood Pressure 116/68 104/59 L 113/62 Blood Pressure [Right Arm] Blood Pressure Mean [Right Arm] 02 Sat by Pulse Oximetry 96 97 98 Oxygen Delivery Method Room Air Room Air 09/08/24 11:00 09/08/24 11:15 09/08/24 11:30 Temperature Temperature Source Pulse Rate 82 94 H 91 H Pulse Rate [Left Radial] Respiratory Rate Blood Pressure 119/68 124/79 127/71 Blood Pressure [Right Arm] Blood Pressure Mean [Right Arm] 02 Sat by Pulse Oximetry 97 97 98 Oxygen Delivery Method Room Air Room Air Lab Data Lab Results 09/08/24 09:45: VBG pH 7.43 H, VBG pCO2 31.5 L, VBG pO2 127.1 H, VBG HCO3 20.3 L, VBG Total CO2 21.3 L, VBG O2 Saturation 98.3 H, VBG Base Excess -4.0 L, VBG Lactic Acid 2.1 H 09/08/24 09:46: SARS-CoV-2 (PCR) Not detected, Influenza A Untype (PCR) Not detected, Influenza Type B (PCR) Not detected 09/08/24 09:50: Urine Color Yellow, Urine Appearance Clear, Urine pH 6.0, Ur Specific [place] 1.025, Urine Protein Negative, Urine Glucose (UA) 3+, Urine Ketones 1+, Urine Blood Negative, Urine Nitrate Negative, Urine Bilirubin Negative, Urine Urobilinogen 0.2, Ur Leukocyte Esterase Negative, Urine RBC None, Urine WBC Occasional, Ur Squamous Epith Cells 3-5, Urine Bacteria Trace, Hyaline Casts Occ 09/08/24 10:00: WBC 10.9 H D, RBC 5.44 H, Hgb 16.2, Hct 45.0, MCV 82.7, MCH 29.8, MCHC 36.0 H, RDW 11.9, Plt Count 258, MPV 9.6, Neut % (Auto) 88.0 H, Lymph % (Auto) 7.4 L, [place] % (Auto) 2.8, Eos % (Auto) 1.0, Baso % (Auto) 0.4, Neut # (Auto) 9.6 H, Lymph # (Auto) 0.8, [place] # (Auto) 0.3, Eos # (Auto) 0.1, Baso # (Auto) 0.0, Total Counted 100, Neutrophils % (Manual) 89 H, Lymphocytes % (Manual) 8 L, Monocytes % (Manual) 2, Eosinophils % (Manual) 1, Platelet Estimate Normal, RBC Morphology Normal, Sodium 132 L, Potassium 4.0, Chloride 101, Carbon Dioxide 21 L, Anion Gap 14.0, BUN 9, Creatinine 0.50 L, Estimated Creat Clear 159, Estimated GFR 136, Est GFR ( Amer) 165 D, Glucose 333 H, Calcium 9.2, Total Bilirubin 1.1, AST 54 H, ALT 62, Alkaline Phosphatase 113, Troponin I < 0.01, Total Protein 7.3, Albumin 4.4, Globulin 2.9, Albumin/Globulin Ratio 1.5, Lipase 89, Acetone Level None detected 09/08/24 10:00 09/08/24 10:00 Orders (Tests/Meds): ED MEDICATIONS Generic Name Dose Route Start Last Admin Trade Name Freq PRN Reason Stop Dose Admin Acetaminophen 1,000 mg 09/08/24 11:39 09/08/24 11:41 Acetaminophen 500mg Tab PO 09/08/24 11:40 1,000 mg ONCE ONE Administration Ketorolac Tromethamine 30 mg 09/08/24 11:39 09/08/24 11:41 Ketorolac 30mg/Ml Vial IV 09/08/24 11:40 30 mg ONCE ONE Administration Discontinued Medications Generic Name Dose Route Start Last Admin Trade Name Freq PRN Reason Stop Dose Admin Lactated Ringer's 1,000 mls @ 999 mls/hr 09/08/24 09:51 09/08/24 10:00 Lactated Ringer's 1000 Ml Bag IV 09/08/24 10:51 999 mls/hr .Q1H1M ONE Administration Ondansetron HCl 4 mg 09/08/24 09:51 09/08/24 10:00 Ondansetron 4mg/2ml Vial IV 09/08/24 09:52 4 mg ONCE ONE Administration ORDERS Category Date Time Status Acetone, Serum (Rapid) Stat Lab 09/08/24 10:00 Completed CBC w/Auto Diff [Complete Blood Count Auto Diff] Stat Lab 09/08/24 10:00 Completed CMP [Comprehensive Metabolic Panel] Stat Lab 09/08/24 10:00 Completed Lipase Stat Lab 09/08/24 10:00 Completed Rapid PCR Covid and Flu A/B Stat Lab 09/08/24 09:46 Completed Trop I [Troponin I] Stat Lab 09/08/24 10:00 Completed UA [Urinalysis and Microscopic] Stat Lab 09/08/24 09:50 Completed VBG [Venous Blood Gas] Stat RT 09/08/24 09:45 Completed EKG Request [ECG Request] Stat Y 09/08/24 09:46 Ordered ECG Data Tracing #1: Independently interpreted by me rate is 88, rhythm is regular, axis is normal, no ST elevation in anatomical contiguous leads, QTc 418 Medical Decision Narrative: In summary patient is a 39-year-old female past medical history described below presents emerged part for evaluation of vomiting epigastric discomfort. Patient is hemodynamically stable nontoxic-appearing upon arrival, afebrile. Patient was here on and was diagnosed with new onset diabetes for which workup was deemed nonactionable at that time patient received crystalloid bolus did not have any acidemia and was discharged with metformin and outpatient follow-up for which she has been compliant with her metformin and has yet to follow-up with PCP due to the short interval in between visits. Differential includes DKA, viral syndrome, gastritis, pancreatitis, among others. Workup will be conducted with hematologic labs, VBG, UA. Initial inventions include crystalloid bolus, Zofran. CT imaging abdomen pelvis was considered however patient is not tender in the right upper quadrant and has mild epigastric tenderness I do not think it will contribute to diagnostic workup at this time will be deferred. Patient has a nonfocal neurologic exam on my evaluation so intracranial imaging will be deferred also. Initial workup reviewed by me, no significant leukocytosis, metabolic alkalosis consistent with vomiting that has appropriate respiratory compensation with calculated, hyperglycemia without ketonemia and pseudohyponatremia that does not require correction at this time. Urinalysis interpreted by me and not consistent with infection. On repeat evaluation patient had persistent global pain which we treated with Toradol and Tylenol. Given this patient is appropriate for outpatient management at this time we discharged with a course of Phenergan and was given return precautions. Critical Care Critical Care Time Critical Care Time: No
[2024-09-08 09:52] LABS: Coronavirus 19, PCR Not Detected (NotDetected); Influenza A, PCR Not Detected (NotDetected); Influenza B, PCR Not Detected (NotDetected)
[2024-09-08 09:56] LABS: Microscopic, Urine URINE MICROSCOPIC (MICROSCOPIC)
[2024-09-08] MEDS: LACTATED RINGERS 1000ML 1,000 ML 999 ML IV (10:00)
[2024-09-08] MEDS: ONDANSETRON 4MG/2ML VIAL 4 MG IV (10:00)
[2024-09-08 10:02] LABS: Appearance,Urine CLEAR (Clear); Bilirubin,Urine Negative (Negative); Blood, Urine Negative (Negative); Color,Urine YELLOW (Yellow); Glucose,Urine (UA) 3+ (Negative); Ketones,Urine 1+ (Negative); Leukocyte Esterase,Urine Negative (Negative); Nitrate,Urine Negative (Negative); Protein,Urine Negative (Negative); Specific Gravity, Urine 1.025 (1.005-1.030); Urobilinogen,Urine 0.2 EU/dl (0.2)
[2024-09-08 10:16] LABS: VBG HCO3 20.3 mmol/L (23-30); VBG Oxygen Saturation 98.3 % (50-70); VBG PCO2 31.5 mmol/L (35-51); VBG PH 7.43 mmol/L (7.31-7.41); VBG PO2 127.1 mmol/L (28-40); VBG Total CO2 21.3 mmol/L (23-27)
[2024-09-08 10:17] LABS: Lactate Venous 2.1 mmol/L (0.4-2.0)
[2024-09-08 10:21] LABS: Basophils % 0.4 % (0.1-2.0); Eosinophils # 0.1 K/mm3 (0.0-0.4); Hemoglobin 16.2 g/dL (12.2-16.2); Lymphocytes # 0.8 K/mm3 (0.7-4.5); Lymphocytes % 7.4 % (10-50); Mean Corpuscular Hemoglobin 29.8 pg (27.0-31.2); Mean Corpuscular Volume 82.7 fl (81-99); Mean Platelet Volume 9.6 fl (7.4-10.4); Monocytes # 0.3 K/mm3 (0.1-1.0); Monocytes % 2.8 % (1.7-9.3); Neutrophils # 9.6 K/mm3 (1.8-7.8); Platelet Count 258 K/mm3 (142-424); Red Blood Count 5.44 M/mm3 (4.20-5.40); Red Cell Distribution Width 11.9 % (11.5-17.5); White Blood Count 10.9 K/mm3 (4.8-10.8)
[2024-09-08 10:27] LABS: Acetone, Serum (Rapid) None Detected (None Detect); Alanine Aminotransferase 62 U/L (12-78); Albumin Level 4.4 g/dl (3.5-5.0); Albumin/Globulin Ratio 1.5 (1.1-1.8); Alkaline Phosphatase 113 U/L (38-126); Aspartate Amino Transferase 54 U/L (14-36); Bilirubin,Total 1.1 mg/dl (0.2-1.3); Blood Urea Nitrogen 9 mg/dl (7-17); Calcium 9.2 mg/dl (8.4-10.2); Carbon Dioxide 21 mmol/L (22.0-30.0); Chloride 101 mmol/L (98-107); Creatinine Clearance Estimated 159 mL/min (50-200); Estimated Glomerular Filt Rate 136 ml/min (>60); GFR (African American) 165 ML/MIN (>60); Globulin 2.9 g/dL (1.3-3.2); Glucose 333 mg/dl (74-100); Lipase 89 U/L (23-300); Sodium 132 mmol/L (136-145); Total Protein,Serum 7.3 g/dl (6.3-8.2)
[2024-09-08 10:28] LABS: Bacteria,Urine Trace /lpf; Hyaline Casts,Urine OCC #/lpf (0); WBC,Urine Occasional #/hpf (0-3)
[2024-09-08 10:28] LABS: MANUAL DIFFERENTIAL MANUAL DIFFERENTIAL (MANUAL DIFF)
[2024-09-08 10:49] LABS: Troponin I < 0.01 ng/ml (0.00-0.034)
[2024-09-08 10:53] LABS: Eosinophils % 1 % (0-3); Lymphocytes % 8 % (10-50); Monocytes % 2 % (2-9); Neutrophils % 89 % (42-76); Platelet Estimate Normal; RBC Morphology Normal; Total Cells Counted 100
[2024-09-08] MEDS: KETOROLAC 30MG/ML VIAL 30 MG IV (11:41)
[2024-09-08] MEDS: ACETAMINOPHEN 500MG TAB 1000 MG PO (11:41)
--- NOTE | 2024-09-08 11:51 | PC.NURSE ---
1033 pt rang out and states she wants to leave the hospital AMA. pt reports she is unsatisfied with her care and would like to go to another hospital. I stayed bedside and talked with her, she agreed for me to get to talk with her. Dr. Corral went bedside and placed an order for pain meds. Pt seemed satisfied and was d/c home.
[2024-09-08 14:17] LABS: Reflex Lactic Add Lactic Reflex
== END 2024-09-08 11:51 | disposition home or self-care (01) ==
PROVIDERS: Emergency Provider Emergency Medicine; PCP Student in an Organized Health Care Education/Training Program
DX: R73.9 Hyperglycemia, unspecified (principal); R10.13 Epigastric pain; R11.10 Vomiting, unspecified; R51.9 Headache, unspecified; M79.10 Myalgia, unspecified site
CPT/HCPCS: 80053; 81001; 82009; 82803; 83690; 84484; 85007; 85025; 85027; 87636; 93005; 96361; 96374; 96375; 99283; J1885; J2405; J7120

== ENCOUNTER 2024-09-10 12:05 | Outpatient (CLI) | payer MEDICAID, SELFPAY ==
[2024-09-10 18:26] LABS: Alanine Aminotransferase 57 U/L (12-78); Albumin Level 4.4 g/dl (3.5-5.0); Albumin/Globulin Ratio 1.7 (1.1-1.8); Alkaline Phosphatase 104 U/L (38-126); Amylase 63 U/L (30-110); Anion Gap 15.1 mEq/L (5-15); Aspartate Amino Transferase 55 U/L (14-36); Bilirubin,Total 0.7 mg/dl (0.2-1.3); Blood Urea Nitrogen 8 mg/dl (7-17); Calcium 9.4 mg/dl (8.4-10.2); Carbon Dioxide 24 mmol/L (22.0-30.0); Chloride 101 mmol/L (98-107); Estimated Glomerular Filt Rate 176 ml/min (>60); GFR (African American) 213 ML/MIN (>60); Globulin 2.6 g/dL (1.3-3.2); Glucose 245 mg/dl (74-100); Lipase 107 U/L (23-300); Potassium 4.1 mmoL/L (3.5-5.1); Sodium 136 mmol/L (136-145)
== END 2024-09-10 23:59 | disposition home or self-care (01) ==
LOC: LAB.DROPOF 09-12 09:15
PROVIDERS: PCP Student in an Organized Health Care Education/Training Program; Visit Provider Student in an Organized Health Care Education/Training Program
DX: R10.30 Lower abdominal pain, unspecified (principal)
CPT/HCPCS: 80053; 82150; 83690

== ENCOUNTER 2024-10-02 08:53 | Outpatient (CLI) | payer MEDICAID, SELFPAY ==
[2024-10-02 17:40] LABS: Microscopic, Urine URINE MICROSCOPIC (MICROSCOPIC)
[2024-10-02 17:51] LABS: Basophils # 0.1 K/mm3 (0-0.2); Basophils % 0.5 % (0.1-2.0); Eosinophils # 0.2 K/mm3 (0.0-0.4); Eosinophils % 2.2 % (0.1-12.0); Hematocrit 48.2 % (37.0-47.0); Hemoglobin 16.1 g/dL (12.2-16.2); Lymphocytes % 32.6 % (10-50); Mean Corpuscular HGB Conc 33.4 g/dL (31.8-35.4); Mean Corpuscular Volume 89.8 fl (81-99); Mean Platelet Volume 9.4 fl (7.4-10.4); Monocytes # 0.5 K/mm3 (0.1-1.0); Monocytes % 5.2 % (1.7-9.3); Neutrophils # 5.5 K/mm3 (1.8-7.8); Neutrophils % 59.3 % (37.0-80.0); Platelet Count 350 K/mm3 (142-424); Red Blood Count 5.37 M/mm3 (4.20-5.40); Red Cell Distribution Width 12.2 % (11.5-17.5); White Blood Count 9.2 K/mm3 (4.8-10.8)
[2024-10-02 18:01] LABS: Appearance,Urine CLEAR (Clear); Bilirubin,Urine Negative (Negative); Blood, Urine Negative (Negative); Color,Urine YELLOW (Yellow); Glucose,Urine (UA) Negative (Negative); Ketones,Urine Negative (Negative); Leukocyte Esterase,Urine Negative (Negative); Nitrate,Urine Negative (Negative); Protein,Urine Negative (Negative); Specific Gravity, Urine 1.025 (1.005-1.030); Urobilinogen,Urine 0.2 EU/dl (0.2)
[2024-10-02 18:24] LABS: Microalbumin/Creatinine Ratio 6.9
[2024-10-02 18:29] LABS: Creatinine,Urine Random 155 mg/dL (Not Estab.); Total Protein,Urine Random < 5.0 mg/dL (0.0-12.0)
[2024-10-02 18:33] LABS: Blood Urea Nitrogen 9 mg/dl (7-17); Calcium 9.6 mg/dl (8.4-10.2); Carbon Dioxide 22 mmol/L (22.0-30.0); Chloride 104 mmol/L (98-107); Chol/HDL Ratio 6.5 (1-3.5); Cholesterol 240 mg/dl (140-200); Estimated Glomerular Filt Rate 136 ml/min (>60); GFR (African American) 165 ML/MIN (>60); Glucose 110 mg/dl (74-100); HDL Cholesterol 37 mg/dl (40-60); Sodium 140 mmol/L (136-145); Triglycerides 297 mg/dl (30-150); VLDL Cholesterol 59 mg/dL (0-40); WBC,Urine Occasional #/hpf (0-3)
[2024-10-02 18:34] LABS: Bacteria,Urine 2+ /lpf; Calcium Oxalate Crystals,Urine 1+ /lpf; Mucus,Urine 4+ /lpf
[2024-10-02 18:43] LABS: Direct LDL Cholesterol 164.04 mg/dL (100-129)
[2024-10-02 18:59] LABS: 25-OH Vitamin D, Total 16.9 ng/mL (30-100)
[2024-10-02 19:01] LABS: Free T4 (Free Thyroxine) 1.71 ng/dl (0.78-2.19)
[2024-10-02 19:03] LABS: Thyroid Stimulating Hormone 0.38 uIU/mL (0.465-4.68)
[2024-10-02 19:22] LABS: Vitamin B12 634 pg/mL (239-931)
== END 2024-10-02 23:59 | disposition home or self-care (01) ==
LOC: LAB.DROPOF 10-03 08:54
PROVIDERS: PCP Nurse Practitioner Family; Visit Provider Nurse Practitioner Family
DX: E11.9 Type 2 diabetes mellitus without complications (principal); E55.9 Vitamin D deficiency, unspecified; I10 Essential (primary) hypertension; E53.8 Deficiency of other specified B group vitamins; R53.83 Other fatigue; E78.5 Hyperlipidemia, unspecified; G47.00 Insomnia, unspecified
CPT/HCPCS: 80048; 80061; 81001; 82043; 82306; 82570; 82607; 84156; 84439; 84443; 85025; 87086

== ENCOUNTER 2024-10-17 12:05 | Outpatient (CLI) | payer MEDICAID, SELFPAY ==
[2024-10-17 15:02] VITALS: BMI 29.8
== END 2024-10-17 23:59 | disposition home or self-care (01) ==
LOC: DIETICIAN 12:05
PROVIDERS: PCP Nurse Practitioner Family; Visit Provider Nurse Practitioner Family
DX: E11.9 Type 2 diabetes mellitus without complications (principal); Z71.3 Dietary counseling and surveillance
CPT/HCPCS: 97802

== ENCOUNTER 2024-12-19 14:58 | Outpatient (CLI) | payer MEDICAID, SELFPAY ==
[2024-12-19 11:38] LABS: Microscopic, Urine URINE MICROSCOPIC (MICROSCOPIC)
[2024-12-19 12:11] LABS: Appearance,Urine CLEAR (Clear); Bilirubin,Urine Negative (Negative); Blood, Urine Negative (Negative); Color,Urine YELLOW (Yellow); Glucose,Urine (UA) Negative (Negative); Ketones,Urine Negative (Negative); Leukocyte Esterase,Urine Negative (Negative); Nitrate,Urine Negative (Negative); Protein,Urine Negative (Negative); Urobilinogen,Urine 0.2 EU/dl (0.2)
[2024-12-19 12:44] LABS: Hemoglobin A1C 5.8 % (4.0-6.0)
[2024-12-19 12:44] LABS: Bacteria,Urine 1+ /lpf
[2024-12-19 13:03] LABS: Albumin Level 4.4 g/dl (3.5-5.0); Chloride 103 mmol/L (98-107); Sodium 141 mmol/L (136-145)
[2024-12-19 13:04] LABS: Potassium 4.1 mmoL/L (3.5-5.1)
[2024-12-19 13:06] LABS: Alanine Aminotransferase 23 U/L (12-78); Albumin/Globulin Ratio 1.5 (1.1-1.8); Alkaline Phosphatase 60 U/L (38-126); Anion Gap 17.1 mEq/L (5-15); Aspartate Amino Transferase 25 U/L (14-36); Bilirubin,Total 0.9 mg/dl (0.2-1.3); Blood Urea Nitrogen 9 mg/dl (7-17); Carbon Dioxide 25 mmol/L (22.0-30.0); Cholesterol 207 mg/dl (140-200); Estimated Glomerular Filt Rate 136 ml/min (>60); GFR (African American) 165 ML/MIN (>60); Total Protein,Serum 7.4 g/dl (6.3-8.2); Triglycerides 170 mg/dl (30-150); VLDL Cholesterol 34 mg/dL (0-40)
[2024-12-19 13:07] LABS: Calcium 9.1 mg/dl (8.4-10.2); Chol/HDL Ratio 4.6 (1-3.5); Glucose 90 mg/dl (74-100); HDL Cholesterol 45 mg/dl (40-60)
[2024-12-19 13:17] LABS: Direct LDL Cholesterol 135.35 mg/dL (100-129)
[2024-12-19 13:19] LABS: Free T4 (Free Thyroxine) 1.29 ng/dl (0.78-2.19)
[2024-12-19 13:34] LABS: Thyroid Stimulating Hormone 0.64 uIU/mL (0.465-4.68)
[2024-12-19 14:27] LABS: 25-OH Vitamin D, Total 27.7 ng/mL (30-100)
--- OUTSIDE RECORDS SUMMARY | 2024-12-19 15:00 | XMS_ITS | Clinical Summary ---
Author Organization [facility] Address [address] [place] [address] Phone Care Team Providers Care Assembler Insulator Name Role Phone JHONY TALLEY Primary Care Provider [phone] Vidal Barron MD Unavailable [phone] Reason for Referral Date Encounter Description Provider Reason for Referral 11/15/21 Post Op Roberto Carlos Ellis PA-C Referral To Physician - See PCp for BP Reason for Visit and Chief Complaint The Chief Complaint is: right knee POV Problems Includes: Problems addressed during this encounter and other active Problems All Visits Onset Date Resolved Date Provider Condition S tatus Joint Pain in the Right Knee 08/25/2021 Roberto Carlos Ellis PA-C Active Last Documented On 1 1:33PM ; [facility] Plan of Treatment Patient was seen by myself Roberto Carlos Ellis PA-C. Patient will follow up [address] Barron sutures out today weight-bear as tolerated continue with PT - Last Documented On 11/15/2021 9:13AM ; [facility] Pending Tests Order Diagnosis Results Due Ordering P rovider Radiology - MRI MRI R Knee 09/08/21 Roberto Carlos dobson PA-C Last Documented On 1 2:42PM ; [facility] Instructions to patient Intervention and counseling on cessation of tobacco use Last Documented On 2 8:49AM ; [facility] Lose weight Last Documented On 2 8:49AM ; [facility] Assessments Includes: Assessments from this encounter Findings right knee scope partial medial meniscectomy and chondroplasty for the patellofemoral joint November 03, 2021 - Last Documented On 11/15/2021 9:13AM ; [facility], [facility] Instructions Includes: Instructions from this encounter Instructions to patient Intervention and counseling on cessation of tobacco use Last Documented On 2 8:49AM ; [facility] Lose weight Last Documented On 2 8:49AM ; [facility] Medical Equipment - Implanted Devices Includes: Current Devices No Medical Equipment Recorded Medications Includes: Medications discussed during this encounter and other current Medications Current Medications (continue as prescribed) Adipex-P 37.5 MG Oral Capsule 08/25/2021 Provider: Diagnosis: Last Documented On 1 1:49PM By Mario Anderson ; [facility] Xyzal 5 MG Oral Tablet 08/25/2021 Provider: Diagnosis: Last Documented On 1 1:49PM By Mario Anderson ; [facility] Past Medications on file oxyCODONE HCl 5 MG Oral Tablet 11/02/2021 - 11/06/2021 Provider: Vidal Barron MD Diagnosis: 1 po q 4h 1 tablet by mouth every [address] op pain Last Documented On 2 8:11PM By Vidal Barron ; [facility] Ondansetron HCl 4 MG Oral Tablet 11/02/2021 - 11/17/19 Provider: Vidal Barron MD Diagnosis: 1-2 p o q 6-8h as needed for nausea Last Documented On 2 8:11PM By Vidal Barron ; [facility], [facility] Ultram 50 MG Oral Tablet 11/02/2021 - 11/12/2021 Provi rodney: Vidal Barron MD Diagnosis: 1-2 tablets by mouth every 4-6hrs for post op pa in Last Documented On 2 8:26PM By Vidal Barron ; [facility], [facility] Medications Administered Includes: Administered Medications from this encounter No Administered Medications Recorded Vital Signs Includes: Vital Signs from this encounter Vital Name 11/15/2021 08:49A Blood Pressure Sitting (mmHg) 118/106 Pulse Rate-Sitting (bpm) 83 Height (in) 60 Weight (lb) 151.4 Body Mass Index (kg/m2) 29.6 Body Surface Area (m2) 1.7 Note: MG Last Documented: On 11/15/2021 8:59AM ; [facility], [facility] Results Includes: Results discussed during this encounter No Results Recorded For Specified Dates History of Present Illness Includes: History of Present Illness from this encounter ADILIA Condon is a 36 year old female. - Allergy list reviewed - Problem list reviewed - Medication reconciliation performed - Medication list reviewed - Medication list reviewed with patient Follow-up on her right knee scope with partial meniscectomy and debridement patellofemoral joint November 03, 2021. Patient is doing well she has been doing physical therapy she is progressing well with PT should not have any pain with the right knee Social History Description Last Updated Smoker 08/25/2021 Last Documented On 2 8:49AM ; [facility] Caffeine use 08/25/2021 Last Documented On 2 8:49AM ; [facility] Exercising regularly 08/25/2021 Last Documented On 2 8:49AM ; [facility] Not using alcohol 08/25/2021 Last Documented On 2 8:49AM ; [facility] Not using drugs 08/25/2021 Last Documented On 2 8:49AM ; [facility] Recent change in diet 08/25/2021 Last Documented On 2 8:49AM ; [facility] Yes, current smoker. 08/25/2021 Last Documented On 2 8:49AM ; [facility] Smoking Status Unknown Procedures and Surgical History Includes: Procedures from this encounter Procedures Code Diagnosis Performing Provider Service L ocation Service Date intervention and counseling on cessation of tobacco use 4000F Last Documented On 2 8:49AM ; [facility], [facility] use of tobacco assessment performed 1000F Last Documented On 2 8:49AM ; [facility] referral to physician See PCp for BP Last Documented On 2 8:49AM ; [facility] an X-ray was performed 82446 Last Documented On 2 8:49AM ; [facility] a CT scan was performed [id number] Last Documented On 2 8:49AM ; [facility] Medical History Includes: Medical History addressed during this encounter Description Last Updated Recent immunization for flu 09/07/2021 Last Documented On 2 8:49AM ; [facility] Past medical history non-contributory Last Documented On 2 8:49AM ; [facility] Past Surgical History: bladder sx ~tonsi llectomy ~ x2 08/25/2021 Last Documented On 2 8:49AM ; [facility] No recent immunization for pneumococcal pneumonia 08/25/2021 Last Documented On 2 8:49AM ; [facility] Family History Includes: Family History addressed during this encounter Description Last Updated No significant family history 08/25/2021 Last Documented On 2 8:49AM ; [facility] Review of Systems Includes: Review of Systems from this encounter Systemic: Not feeling tired, no recent weight loss, and no recent weight gain. Head: No headache and no sinus pain. Eyes: No vision problems and no Cataracts. Glasses/Contacts. No Glaucoma. Otolaryngeal: No hearing loss and no tinnitus. Cardiovascular: No chest pain or discomfort, no palpitations, no Hypertension, and no High Cholesterol. Pulmonary: No daytime asthma symptoms and no chronic cough. No wheezing. Gastrointestinal: No heartburn and no abdominal pain. No Indigestion, no Acid Reflux, no Peptic Ulcer, no GI Stomach Bleed, and no Ulcers. Endocrine: No hot flashes, no muscle weakness, no Diabetes, no Hypothyroid, and no Hyperthyroid. Hematologic: No easy bleeding, no tendency for easy bruising, and no Anemia. Musculoskeletal: No Arthritis and no lower back pain. No soft tissue swelling. Pain localized to one or more joints. Neurological: No dizziness, no convulsions, and no numbness. Psychological: No anxiety, no emotional lability, no depression, and no insomnia. Not crying for no reason. Skin: No dry skin. No Ulcers, no Scars, and no rash. Allergic and Immunologic: Complaint of seasonal allergic reaction. Mental Status Includes: Mental Status from this encounter Description No anxiety Functional Status Includes: Functional Status from this encounter No Functional Status Recorded Physical Exam Includes: Physical Exam from this encounter Allergies Includes: Active Allergies Substance Type Reaction Onset Date Resolved Date Statu s Vancomycin HCl Allergy 08/25/2021 Acti ve Last Documented On 2 10:47AM ; [facility] Encounters Encounter Provider Location Date Check-In Time Check- Out Time Diagnosis Post Op [facility] 2 8:45AM 9:18AM Insurance Includes: Active Insurance Policies Plan Name Member ID Group # Subscriber Relationship Effect lazara Dates 1 - BCBS Medicaid [id number] Iris Le Self Clinical Notes Includes: Clinical Notes from this encounter No Clinical Notes Recorded
--- OUTSIDE RECORDS SUMMARY | 2024-12-19 15:00 | XMS_ITS | Clinical Summary ---
Author Organization [facility] , [facility] Address [address] [place] [address] Phone Care Team Providers Care Dean Of Men Name Role Phone JHONY TALLEY Primary Care Provider [phone] Vidal Barron MD Unavailable [phone] Reason for Visit and Chief Complaint The Chief Complaint is: right knee POV Problems Includes: Problems addressed during this encounter and other active Problems All Visits Onset Date Resolved Date Provider Condition S tatus Joint Pain in the Right Knee 08/25/2021 Roberto Carlos Ellis PA-C Active Last Documented On 1 1:33PM ; [facility], [facility] Plan of Treatment Patient will continue home exercise program and follow-up as an when necessary basis - Last Documented On 02/21/2022 4:49PM ; [facility] Instructions to patient Intervention and counseling on cessation of tobacco use Last Documented On 2 10:48AM ; [facility] Lose weight Last Documented On 2 10:48AM ; [facility], [facility] Assessments Includes: Assessments from this encounter No Assessments Recorded Instructions Includes: Instructions from this encounter Instructions to patient Intervention and counseling on cessation of tobacco use Last Documented On 2 10:48AM ; [facility], [facility] Lose weight Last Documented On 2 10:48AM ; [facility] Medical Equipment - Implanted Devices Includes: Current Devices No Medical Equipment Recorded Medications Includes: Medications discussed during this encounter and other current Medications Current Medications (continue as prescribed) Adipex-P 37.5 MG Oral Capsule 08/25/2021 Provider: Diagnosis: Last Documented On 1 1:49PM By Mario Anderson ; [facility], [facility] Xyzal 5 MG Oral Tablet 08/25/2021 Provider: Diagnosis: Last Documented On 1 1:49PM By Mario Anderson ; [facility] Past Medications on file oxyCODONE HCl 5 MG Oral Tablet 11/02/2021 - 11/06/2021 Provider: Vidal Barron MD Diagnosis: 1 po q 4h 1 tablet by mouth every [address] op pain Last Documented On 2 8:11PM By Vidal Barron ; [facility] Ondansetron HCl 4 MG Oral Tablet 11/02/2021 - 11/17/19 Provider: Vidal Barron MD Diagnosis: 1-2 p o q 6-8h as needed for nausea Last Documented On 2 8:11PM By Vidal Barron ; [facility] Ultram 50 MG Oral Tablet 11/02/2021 - 11/12/2021 Provi rodney: Vidal Barron MD Diagnosis: 1-2 tablets by mouth every 4-6hrs for post op pa in Last Documented On 2 8:26PM By Vidal Barron ; [facility] Medications Administered Includes: Administered Medications from this encounter No Administered Medications Recorded Vital Signs Includes: Vital Signs from this encounter Vital Name 02/15/2022 10:57A Blood Pressure Sitting (mmHg) 122/84 Pulse Rate-Sitting (bpm) 76 Height (in) 60 Weight (lb) 155 Body Mass Index (kg/m2) 30.3 Body Surface Area (m2) 1.7 Note: mg Last Documented: On 02/15/2022 10:57A M ; [facility] Results Includes: Results discussed during this encounter No Results Recorded For Specified Dates History of Present Illness Includes: History of Present Illness from this encounter ADILIA Condon is a 37 year old female. - Allergy list reviewed - Problem list reviewed - Medication reconciliation performed - Medication list reviewed - Medication list reviewed with patient Follow-up right knee after arthroscopy she has no complaints is doing well is very functional and happy with her results Social History Description Last Updated Smoker 08/25/2021 Last Documented On 2 10:47AM ; [facility] Caffeine use 08/25/2021 Last Documented On 2 10:47AM ; [facility], [facility] Exercising regularly 08/25/2021 Last Documented On 2 10:47AM ; [facility] Not using alcohol 08/25/2021 Last Documented On 2 10:47AM ; [facility], [facility] Not using drugs 08/25/2021 Last Documented On 2 10:47AM ; [facility] Recent change in diet 08/25/2021 Last Documented On 2 10:47AM ; [facility] Yes, current smoker. 08/25/2021 Last Documented On 2 10:47AM ; [facility], [facility] Smoking Status Unknown Procedures and Surgical History Includes: Procedures from this encounter Procedures Code Diagnosis Performing Provider Service L ocation Service Date intervention and counseling on cessation of tobacco use 4000F Last Documented On 2 10:48AM ; [facility] use of tobacco assessment performed 1000F Last Documented On 2 10:48AM ; [facility] Medical History Includes: Medical History addressed during this encounter Description Last Updated Recent immunization for flu 09/07/2021 Last Documented On 2 10:47AM ; [facility] Past medical history non-contributory Last Documented On 2 10:47AM ; [facility] Past Surgical History: bladder sx ~tonsi llectomy ~ x2 08/25/2021 Last Documented On 2 10:47AM ; [facility] No recent immunization for pneumococcal pneumonia 08/25/2021 Last Documented On 2 10:47AM ; [facility], [facility] Family History Includes: Family History addressed during this encounter Description Last Updated No significant family history 08/25/2021 Last Documented On 2 10:47AM ; [facility], [facility] Review of Systems Includes: Review of Systems [...] ve Last Documented On 2 10:47AM ; [facility] Encounters Encounter Provider Location Date Check-In Time Check- Out Time Diagnosis Follow Up Vidal Barron MD [facility] 2 10:43AM 11:02AM Insurance Includes: Active Insurance Policies Plan Name Member ID Group # Subscriber Relationship Effect lazara Dates - Medicaid [id number] Iris Le Self Clinical Notes Includes: Clinical Notes from this encounter No Clinical Notes Recorded
--- OUTSIDE RECORDS SUMMARY | 2024-12-19 15:00 | XMS_ITS ---
Care Plan - [facility], [facility] Created on: December 19, 2024 Iris Condon : 1985 Sex: Female Author Organization [facility] Address [address] [place] [address] Phone Care Team Providers Care Channel Cementer Insole Machine Name Role Phone JHONY TALLEY Primary Care Provider [phone] Beatrice KRISHNA, Vidal Unavailable [phone]
--- OUTSIDE RECORDS SUMMARY | 2024-12-19 15:00 | XMS_ITS | Clinical Summary ---
Author Organization [facility] , [facility] Address [address] [place] [address] Phone Care Team Providers Care Head Refrigeration Engineer Name Role Phone JHONY TALLEY Primary Care Provider [phone] Vidal Barron MD Unavailable [phone] Reason for Visit and Chief Complaint [facility] Problems Includes: Problems addressed during this encounter and other active Problems All Visits Onset Date Resolved Date Provider Condition S tatus Joint Pain in the Right Knee 08/25/2021 Roberto Carlos Ellis PA-C Active Last Documented On 1 1:33PM ; [facility], [facility] Plan of Treatment No Plan of Treatment Recorded Assessments Includes: Assessments from this encounter No Assessments Recorded Medical Equipment - Implanted Devices Includes: Current Devices No Medical Equipment Recorded Medications Includes: Medications discussed during this encounter and other current Medications Current Medications (continue as prescribed) Adipex-P 37.5 MG Oral Capsule 08/25/2021 Provider: Diagnosis: Last Documented On 1 1:49PM By Mario Krishnan [facility], [facility] Xyzal 5 MG Oral Tablet 08/25/2021 Provider: Diagnosis: Last Documented On 1 1:49PM By Mario Anderson ; [facility], [facility] Medications Administered Includes: Administered Medications from this encounter No Administered Medications Recorded Results Includes: Results discussed during this encounter No Results Recorded For Specified Dates History of Present Illness Includes: History of Present Illness from this encounter No History of Present Illness Recorded Social History No Social History Recorded - Smoking Status Unknown Medical History Includes: Medical History addressed during this encounter No Medical History Recorded Family History Includes: Family History addressed during this encounter No Family History Recorded Review of Systems Includes: Review of Systems from this encounter No Review of Systems Recorded Mental Status Includes: Mental Status from this encounter No Mental Status Recorded Functional Status Includes: Functional Status from this encounter No Functional Status Recorded Physical Exam Includes: Physical Exam from this encounter No Physical Exam Recorded Allergies Includes: Active Allergies Substance Type Reaction Onset Date Resolved Date Statu s Vancomycin HCl Allergy 08/25/2021 Acti ve Last Documented On 2 10:47AM ; [facility] Encounters Encounter Provider Location Date Check-In Time Check-Out Time Diagnosis [facility] Vidal Barron MD Surgery 11/03/2021 11/04/2021 12:44PM 11:59PM Insurance Includes: Active Insurance Policies Plan Name Member ID Group # Subscriber Relationship Effect lazara Dates 1 - [employer] Medicaid [id number] Iris Le Self Clinical Notes Includes: Clinical Notes from this encounter No Clinical Notes Recorded
--- OUTSIDE RECORDS SUMMARY | 2024-12-19 15:00 | XMS_ITS ---
Author Organization [facility] Address [address] [place] [address] Phone Care Team Providers Care Social Media Job Titles Name Role Phone JHONY TALLEY Primary Care Provider [phone] Beatrice KRISHNA, Vidal Unavailable [phone] Reason for Referral Date Encounter Description Provider Reason for Referral 11/15/21 Post Op Roberto Carlos Ellis PA-C Referral To Physician - See PCp for BP 09/21/21 Follow Up Vidal Barron MD Referral To Physician - See PCp for BP Problems Includes: Active, inactive, and resolved Problems All Visits Onset Date Resolved Date Provider Condition S tatus Joint Pain in the Right Knee 08/25/2021 Roberto Carlos Ellis PA-C Active Last Documented On 1 1:33PM ; [facility] Plan of Treatment Pending Tests Order Diagnosis Results Due Ordering P rovider Radiology - MRI MRI R Knee 09/08/21 Roberto Carlos dobson PA-C Last Documented On 1 2:42PM ; [facility] Instructions to patient Intervention and counseling on cessation of tobacco use Last Documented On 2 10:48AM ; [facility] Lose weight Last Documented On 2 10:48AM ; [facility] Intervention and counseling on cessation of tobacco use Last Documented On 2 9:12AM ; [facility] Intervention and counseling on cessation of tobacco use Last Documented On 2 8:49AM ; [facility] Lose weight Last Documented On 2 8:49AM ; [facility] Intervention and counseling on cessation of tobacco use Last Documented On 2 10:50AM ; [facility] Lose weight Last Documented On 2 10:50AM ; [facility] Intervention and counseling on cessation of tobacco use Last Documented On 1 1:52PM ; [facility] Lose weight Last Documented On 1 1:52PM ; [facility] Assessments Includes: Assessments for all patient encounters No Assessments Recorded Instructions Includes: Instructions for all patient encounters Instructions to patient Intervention and counseling on cessation of tobacco use Last Documented On 2 10:48AM ; [facility] Lose weight Last Documented On 2 10:48AM ; [facility] Intervention and counseling on cessation of tobacco use Last Documented On 2 9:12AM ; [facility] Intervention and counseling on cessation of tobacco use Last Documented On 2 8:49AM ; [facility] Lose weight Last Documented On 2 8:49AM ; [facility] Intervention and counseling on cessation of tobacco use Last Documented On 2 10:50AM ; [facility] Lose weight Last Documented On 2 10:50AM ; [facility] Intervention and counseling on cessation of tobacco use Last Documented On 1 1:52PM ; [facility] Lose weight Last Documented On 1 1:52PM ; [facility] Medical Equipment - Implanted Devices Includes: Current and historical Devices No Medical Equipment Recorded Medications Includes: Current and historical Medications Current Medications (continue as prescribed) Adipex-P 37.5 MG Oral Capsule 08/25/2021 Provider: Diagnosis: Last Documented On 1 1:49PM By Mario Anderson ; [facility] Xyzal 5 MG Oral Tablet 08/25/2021 Provider: Diagnosis: Last Documented On 1 1:49PM By Mario Anderson ; [facility] Past Medications on file oxyCODONE HCl 5 MG Oral Tablet 11/02/2021 - 11/06/2021 Provider: Vidal Barron MD Diagnosis: 1 po q 4h 1 tablet by mouth every [address] op pain Last Documented On 2 8:11PM By Vidal Barron ; [facility] Ondansetron HCl 4 MG Oral Tablet 11/02/2021 - 11/17/19 Provider: Vidal Barron MD Diagnosis: 1-2 p o q 6-8h as needed for nausea Last Documented On 2 8:11PM By Vidal Barron ; [facility] Ultram 50 MG Oral Tablet 11/02/2021 - 11/12/2021 Provi rodney: Vidal Barron MD Diagnosis: 1-2 tablets by mouth every 4-6hrs for post op pa in Last Documented On 2 8:26PM By Vidal Barron ; [facility] Medications Administered Includes: Administered Medications in patient's chart No Administered Medications Recorded Results Includes: Results from 12/20/2023 through 12/19/2024 No Results Recorded For Specified Dates History of Present Illness History of Present Illness not supported for this document type No History of Present Illness Recorded Social History Description Last Updated Smoker 08/25/2021 Last Documented On 1 2:01PM ; [facility] Caffeine use 08/25/2021 Last Documented On 1 2:01PM ; [facility] Exercising regularly 08/25/2021 Last Documented On 1 2:01PM ; [facility] Not using alcohol 08/25/2021 Last Documented On 1 2:01PM ; [facility] Not using drugs 08/25/2021 Last Documented On 1 2:01PM ; [facility] Recent change in diet 08/25/2021 Last Documented On 1 2:01PM ; [facility] Yes, current smoker. 08/25/2021 Last Documented On 1 2:01PM ; [facility] Smoking Status Unknown Medical History Includes: Medical History in patient's chart Description Last Updated Recent immunization for flu 09/07/2021 Last Documented On 2 11:11PM ; [facility] Past medical history non-contributory Last Documented On 1 2:01PM ; [facility] Past Surgical History: bladder sx ~tonsi llectomy ~ x2 08/25/2021 Last Documented On 1 2:01PM ; [facility] No recent immunization for pneumococcal pneumonia 08/25/2021 Last Documented On 1 2:01PM ; [facility] Family History Includes: Family History in patient's chart Description Last Updated No significant family history 08/25/2021 Last Documented On 1 2:01PM ; [facility] Review of Systems Review of Systems not supported for this document type No Review of Systems Recorded Mental Status Description No anxiety Functional Status No Functional Status Recorded Physical Exam Physical Exam not supported for this document type No Physical Exam Recorded Allergies Includes: Active, inactive, and resolved Allergies Substance Type Reaction Onset Date Resolved Date Statu s Vancomycin HCl Allergy 08/25/2021 Acti ve Last Documented On 2 10:47AM ; [facility] Insurance Includes: Active Insurance Policies Plan Name Member ID Group # Subscriber Relationship Effect lazara Dates 1 - BC[employer] Medicaid [id number] Iris Le Self Clinical Notes Includes: Signed Clinical Notes starting from 08/18/2022 No Clinical Notes Recorded
== END 2024-12-19 23:59 | disposition home or self-care (01) ==
LOC: LAB.DROPOF 14:58
PROVIDERS: PCP Nurse Practitioner Family; Visit Provider Nurse Practitioner Family
DX: E11.9 Type 2 diabetes mellitus without complications (principal); I10 Essential (primary) hypertension; E78.5 Hyperlipidemia, unspecified; E55.9 Vitamin D deficiency, unspecified; G47.33 Obstructive sleep apnea (adult) (pediatric); R53.83 Other fatigue
CPT/HCPCS: 80053; 80061; 81001; 82306; 83036; 84439; 84443

== ENCOUNTER 2025-03-17 09:28 | Outpatient (CLI) | payer MEDICAID, SELFPAY ==
[2025-03-17 17:29] LABS: Alanine Aminotransferase 17 U/L (12-78); Albumin Level 4.8 g/dl (3.5-5.0); Albumin/Globulin Ratio 1.6 (1.1-1.8); Alkaline Phosphatase 60 U/L (38-126); Anion Gap 20.8 mEq/L (5-15); Aspartate Amino Transferase 22 U/L (14-36); Bilirubin,Total 0.6 mg/dl (0.2-1.3); Blood Urea Nitrogen 10 mg/dl (7-17); Calcium 9.6 mg/dl (8.4-10.2); Carbon Dioxide 25 mmol/L (22.0-30.0); Chloride 98 mmol/L (98-107); Cholesterol 151 mg/dl (140-200); Creatinine,Serum 0.50 mg/dl (0.52-1.04); Estimated Glomerular Filt Rate 135 ml/min (>60); GFR (African American) 164 ML/MIN (>60); Globulin 3.0 g/dL (1.3-3.2); Glucose 77 mg/dl (74-100); HDL Cholesterol 47 mg/dl (40-60); Potassium 4.8 mmoL/L (3.5-5.1); Sodium 139 mmol/L (136-145); Total Protein,Serum 7.8 g/dl (6.3-8.2); Triglycerides 151 mg/dl (30-150)
[2025-03-17 17:43] LABS: Free T4 (Free Thyroxine) 1.11 ng/dl (0.78-2.19)
[2025-03-17 18:00] LABS: Thyroid Stimulating Hormone 0.70 uIU/mL (0.465-4.68)
[2025-03-17 19:14] LABS: Hemoglobin A1C 6.2 % (4.0-6.0)
--- OUTSIDE RECORDS SUMMARY | 2025-03-18 12:19 | XMS_ITS | Clinical Summary ---
Author Organization [facility] Address [address] [place] [address] Phone Care Team Providers Care Match Up Worker Name Role Phone Jesusita Liu APRN Primary Care Physician [phone] Conditions or Problems Problem Name Problem Code Onset Date Status Entry Date Provider Comment Standard Description Annotate Body mass index (BMI) 30.0-30.9; adult Z68.30 (ICD-10-CM ) Active Gregorio Sherman MD Body mass index [BMI] 30.0-30.9, adult Body mass index (BMI) 29.0-29.9; adult Z68.29 (ICD-10-CM ) 06/03 Correction 06/03 Gregorio Sherman MD Body mass index [BMI] 29.0-29.9, adult Body mass index (BMI) 29.0-29.9; adult Z68.29 (ICD-10-CM ) 06/03 Removed 06/03 Gregorio Sherman MD Body mass index [BMI] 29.0-29.9, adult Body mass index (BMI) 29.0-29.9; adult Z68.29 (ICD-10-CM ) 04/18 Correction 04/18 Gregorio Sherman MD Body mass index [BMI] 29.0-29.9, adult Anxiety 70010049 (SNOMED CT) 04/18 Active 04/18 Gregorio Sherman MD Anxiety Depression, acute 17694104 (SNOMED CT) 04/18 Active 04/18 Gregorio Sherman MD Depressive disorder Cartilage disorder 27319242 (SNOMED CT) 05/29 Inactive 05/29 Jesusita Liu COLLECTION SPECIALIST Cartilage disorder of rt knee Knee pain, right 39330273 (SNOMED CT) 05/21 Inactive 05/21 Jesusita Liu COLLECTION SPECIALIST Knee pain Subclinical hypothyroid ism 58434287 (SNOMED CT) 04/19 Inactive 04/19 Jesusita Liu COLLECTION SPECIALIST Subclinical hypothyroidism Vitamin D deficiency 54241776 (SNOMED CT) 04/19 Inactive 04/19 Jesusita Liu COLLECTION SPECIALIST Vitamin D deficiency Hypertrigly ceridemia 912090631 (SNOMED CT) 04/19 Inactive 04/19 Jesusita Liu COLLECTION SPECIALIST Hypertriglycer idemia Body mass index (BMI) 29.0-29.9; adult Z68.29 (ICD-10-CM ) 04/18 Removed 04/18 Jesusita Liu COLLECTION SPECIALIST Body mass index [BMI] 29.0-29.9, adult Screening for hypothyroid ism 089605378 (SNOMED CT) 04/18 Inactive 04/18 Jesusita Liu COLLECTION SPECIALIST Thyroid disorder screening Screening for hypercholes terolemia 411675099 (SNOMED CT) 04/18 Inactive 04/18 Jesusita Liu COLLECTION SPECIALIST Cholesterol screening Screening for diabetes mellitus 928788032 (SNOMED CT) 04/18 Inactive 04/18 Jesusita Liu COLLECTION SPECIALIST Diabetes mellitus screening Establish care or get acquainted visit 142283949 (SNOMED CT) 04/18 Inactive 04/18 Jesusita Liu COLLECTION SPECIALIST Procedure carried out on subject Knee pain, right 97540587 (SNOMED CT) 04/18 Inactive 04/18 Jesusita Liu COLLECTION SPECIALIST Knee pain Depression, acute 98133507 (SNOMED CT) 04/18 Inactive 04/18 Jesusita Liu COLLECTION SPECIALIST Depressive disorder Anxiety 47590314 (SNOMED CT) 04/18 Inactive 04/18 Jesusita Liu COLLECTION SPECIALIST Anxiety Medications Medication Instructions Start Date Stop Date Generic Name NDC Provider CITALOPRAM HYDROBROMIDE 10 MG TABS TAKE 1 TABLET BY MOUTH 1 TIME A DAY CITALOPRAM HYDROBROMIDE [id number] Gregorio Sherman MD CITALOPRAM HYDROBROMIDE 20 MG TABS TAKE 1 TABLET BY MOUTH ONCE A DAY CITALOPRAM HYDROBROMIDE [id number] Jesusita Liu APRN DICLOFENAC SODIUM 3 % TRANSDERMAL GEL apply to affected area bid DICLOFENAC SODIUM [id number] Jesusita Liu APRN DICLOFENAC SODIUM 75 MG TBEC TAKE 1 TABLET BY MOUTH 2 TIMES A DAY NEEDED FOR PAIN DICLOFENAC SODIUM 86374502766 Jesusita Pateluilar COLLECTION SPECIALIST VITAMIN D 50 MCG (2000 UT) TABS TAKE 1 TABLET BY MOUTH ONCE A DAY CHOLECALCIFEROL [id number] Jesusita Liu APRN FISH OIL 1000 MG CAPS TAKE 1 CAPSULE BY MOUTH ONCE A DAY OMEGA-3 FATTY ACIDS [id number] Jesusita Liu APRN CITALOPRAM HYDROBROMIDE 20 MG TABS TAKE 1 TABLET BY MOUTH ONCE A DAY CITALOPRAM HYDROBROMIDE [id number] Jesusita Liu APRN MELOXICAM 15 MG TABS TAKE 1 TABLET BY MOUTH ONCE A DAY 05/02 MELOXICAM [id number] Jesusita Liu APRN Medications Administered No information available. Allergies, Adverse Reactions, Alerts Allergy Name Reaction Description Start Date Severity Statu s Provider VANCOMYCIN Critical Active Jesusita Liu APRN Results Date Name Value Unit Range Flag Description Lab Report: LIPID PANEL WITH REFLEX TO DIRECT LDL, LIPID PANEL WITH REFL ... HGBA1C 5.4 % OF TOTAL HGB % <5.7 N Hemoglobin A1c/Hemoglobin, total in Blood - % VIT D 25-OH 24 ng/mL 30-100 L 25-Hydrox ycalciferol [Mass/volume] in Serum or Plasma BASO % MANU 0.8 % N basophils as percent of blood leukocytes, manual count EOS % MANU 3.1 % N eosinophil s as percent of blood leukocytes, manual count MONOCYTE % 6.1 % N Monocytes/ 100 leukocytes in Blood by Automated count LYMPH% P BLD 40.3 % N lymphocy keith as percent of blood leukocytes PMN % 49.7 % N Neutrophils/1 00 leukocytes in Blood by Automated count ABS BASOS 66 {Cells}/u L 0-200 N Basophils [#/volume] in Blood ABS EOS 257 {Cells}/u L 15-500 N Eosinophils [#/volume] in Blood ABS MONOS 506 {Cells}/u L 200-950 N Monocytes [#/volume] in Blood ABSLYMPHCT 3345 {Cells}/u L 850-3900 N Lymphocytes [#/volume] in Blood ABS NEUTROPH 4125 CELLS/UL 10*3/uL 5254-1527 N Neutrophils [#/volume] in Blood MPV 9.0 fL 7.5-12.5 N Platelet felipe n volume [Entitic volume] in Blood by Vamsi PLATELETK/UL 337 THOUSAND/UL 10*3/uL 140-400 N platelet count RDW 14.8 % 11.0-15.0 N Erythrocyte distribution width [Ratio] by Automated count OL-MCHC 33.5 g/dL 32.0-36.0 N mean corpus cular hemoglobin concentration, rbc MCH 28.0 pg 27.0-33.0 N MCH [Entiti c mass] by Automated count MCV 83.7 fL 80.0-100.0 N MCV [Entit ic volume] by Automated count HCT 48.1 % 35.0-45.0 H Hematocrit [Volume Fraction] of Blood by Automated count HGB 16.1 g/dL 11.7-15.5 H Hemoglobin [Mass/volume] in Blood RBC M/UL 5.75 MILLION/UL 10*6/uL 3.80-5.10 H re d blood count WBC CT BLOOD 8.3 10*3/uL 3.8-10.8 N leukocy te count, blood SGPT (ALT) 22 U/L 6-29 N Alanine aminotransferase [Enzymatic activity/volume] in Serum or Plasma SGOT (AST) 17 U/L 10-30 N Aspartate aminotransferase [Enzymatic activity/volume] in Serum or Plasma ALK PHOS 87 U/L 33-115 N Alkaline karlo sphatase [Enzymatic activity/volume] in Blood BILI TOTAL 0.6 mg/dL 0.2-1.2 N Bilirubin. total [Mass/volume] in Serum or Plasma A/G RATIO 1.7 (calc) 1.0-2.5 N Albumin/ Globulin [Mass Ratio] in Serum or Plasma GLOBULIN TOT 2.7 G/DL (CALC) g/dL 1.9-3.7 N Globulin [Mass/volume] in Serum ALBUMIN EOP 4.5 g/dL 3.6-5.1 N Albumin [ Mass/volume] in Serum or Plasma by Electrophoresis PROTEIN, TOT 7.2 g/dL 6.1-8.1 N Protein [Mass/volume] in Serum or Plasma CALCIUM 9.4 mg/dL 8.6-10.2 N Calcium [Moles/volume] in Serum or Plasma CO2 24 mmol/L 20-32 N Carbon dioxid e, total [Moles/volume] in Venous blood CHLORIDE BLD 107 mmol/L 98-110 N chloride , blood POTASSIUM 3.9 mmol/L 3.5-5.3 N Potassium [Moles/volume] in Serum or Plasma SODIUM 139 mmol/L 135-146 N Sodium [Moles /volume] in Serum or Plasma BUN/CREAT NOT APPLICABLE (calc) 6-22 Urea nitrogen/Creatinine [Mass Ratio] in Serum or Plasma EGFR IF AFA 136 mL/min/1. 73m2 >OR = 60 N Glomerular filtratio n rate/1.73 sq M.predicted among blacks [Volume Rate/Area] in Serum, Plasma or Blood by Creatinine-based formula (MDRD) EGFR 117 mL/min/1. 73m2 >OR = 60 N Glomerular filtratio n rate/1.73 sq M.predicted [Volume Rate/Area] in Serum, Plasma or Blood by Creatinine-based formula (MDRD) CREATININE 0.60 mg/dL 0.50-1.10 N Creatini ne [Mass/volume] in Serum or Plasma BUN 7 mg/dL 7-25 N Urea nitrogen [Mass/volume] in Serum or Plasma GLUCOSE SER 77 mg/dL 65-139 N Glucose [ Mass/volume] in Serum or Plasma NON-HDL CHOL 177 MG/DL (CALC) mg/dL <130 H cholesterol, non -HDL, total CHOL/HDL % 4.5 (calc) <5.0 N cholest j luis/HDL ratio, serum, percent LDL 139 MG/DL (CALC) mg/dL H Cholesterol in L DL [Mass/volume] in Serum or Plasma - mg/dL TRIGLYC TOT 235 mg/dL <150 H Triglycer sabas [Mass/volume] in Serum or Plasma - mg/dL HDL 51 mg/dL >50 N Cholesterol i n HDL [Mass/volume] in Serum or Plasma - mg/dL CHOLESTEROL 228 mg/dL <200 H Cholester ol [Mass/volume] in Serum or Plasma - mg/dL Lab Report: TSH W/REFLEX TO FT4, T4, FREE T4, FREE 1.3 ng/dL 0.8-1.8 N Thyroxine (T 4) free [Mass/volume] in Serum or Plasma TSH 0.02 u[iU]/mL L Thyrotropin [Units/volume] in Serum or Plasma Plan of Care Type Date Detail [facility]erral [facility], [address] [place] [address], [place], [address] Referral excluded fr report: Referral [facility], [address] [place] [address], [address] Referral [facility], [address], [place], [address] Referral excluded fr om report: Referral Orthopedic Refer ral General Referral excluded fr om report: Referral [facility], [address] [place], [address] Referral Physical Therapy Referral [facility], [place] Pending order T1 TSH reflex to free T4 Pending order MRI Knee w & w-o ut contrast Pending Order exclud ed from report: Pending order T1 T3 Total Pending Order exclud ed from report: Pending order T1 CBC with diff Pending order T1 CMP Pending order T1 HGBA1c Pending order T1 Lipid Panel Pending order T2 Vitamin D 25 Hydroxy Pending order T1 TSH reflex to free T4 Pending order X-Ray Knee Right Patient education Patient Educat ion Given Procedures Code Procedure Name Date Entry Date [facility]-[id number] Medication Reconciliation CPT-3075F Most recent systolic blood pressure 130-139 mm Hg CPT-3079F Most recent diastoli c blood pressure 80-89 mm Hg [facility] 63405 T1 TSH reflex to free T4 201 05/13/30 CPT-3075F Most recent systolic blood pressure 130-139 mm Hg CPT-3079F Most recent diastoli c blood pressure 80-89 mm Hg SCT-[id number] Medication Reconciliation [facility] 2019 /09/27 [facility] GEN Orthopedic Referral General MRI KNEE W&WO MRI Knee w & w-out contrast [facility] 67833 T1 T3 Total [id number] Medication Reconciliation CPT-3075F Most recent systolic blood pressure 130-139 mm Hg CPT-3075F Most recent systolic blood pressure 130-139 mm Hg SCT-[id number] Giving encouragement to exercise [facility] 6399 T1 CBC with diff [facility] 14584 T1 CMP [facility] 496 T1 HGBA1c [facility] 13487 T1 Lipid Panel [facility] 73820 T2 Vitamin D 25 Hydroxy 2018 [facility] 25145 T1 TSH reflex to free T4 201 05/12/15 X-Ray Knee Right X-Ray Knee Right PSYCH [facility] 04/18 Physical Tx Physical Therapy Referral General Vital Signs Date Name Value Unit Description BMI (Body Mass Index) 30.48 kg/m2 Bod y Mass Index (Ratio) BP Diastolic 84 mm[Hg] blood pressu re, diastolic BP Systolic 130 mm[Hg] blood pressur e, systolic BSA (Body Surface Area) 1.73 b valeria surface area Heart Rate 54 /min pulse rate Height 60 [in_us] height E&M Height 152.4 cm height in cent imeters E&M Weight Measured 70.68 kg weight in kilograms E&M Weight Measured 155.5 [lb_av] weight E& M Weight Measured 155.5 [lb_av] weight E& M Body Temperature 97.6 [degF] temperat ure E&M Body Temperature 36.44 Ginette temperat ure in centigrade E&M Immunizations No information available. Advance Directives No information available.
--- OUTSIDE RECORDS SUMMARY | 2025-03-18 12:20 | XMS_ITS | Clinical Summary ---
Author Organization [facility] Address [address] [place] [address] Phone Care Team Providers Care Observer Gravity Prospecting Name Role Phone Unavailable Unavailable Conditions or Problems No information available. Medications No information available. Medications Administered No information available. Allergies, Adverse Reactions, Alerts No information available. Results No information available. Plan of Care No information available. Procedures No information available. Vital Signs No information available. Immunizations No information available. Advance Directives No information available.
--- OUTSIDE RECORDS SUMMARY | 2025-03-18 12:20 | XMS_ITS | Clinical Summary ---
Author Organization [facility] Address [address] [place] [address] Phone Care Team Providers Care Director Custom Name Role Phone LiuJesusita martinez APRN Primary Care Provider [phone] Social History Tobacco Use Types Packs/Day Years Used Date Smoking Tobacco: Never Assessed Comments Unknown Sex and Gender Information Value Date Recorded Sex Assigned at Not on file Legal Sex Female 11:09 AM EDT Gender Identity Not on file Sexual Orientation Not on file Plan of Treatment Health Maintenance Due Date Last Done Comments Annual Wellness Exam 1986 DTaP/TDaP/Td (1 - Tdap) 2002 Hepatitis B Vaccine (1 of 3 - 19+ 3-dose series) 2002 Cervical Cancer Screening 01/14/2004 Pap Smear 01/14/2004 HPV/Pap Cotest 2013 Breast Cancer Screening 2023 COVID-19 Vaccine ( - 2023-2 5 season) 2024 Influenza Vaccine (#1) 2025 Meningococcal B Vaccine Aged Out No l onger eligible based on patient's age to complete this topic Pneumococcal Vaccine 0-49 Aged Out No longer eligible based on patient's age to complete this topic [place] [id number] [facility] MEDICAID Care Teams Director Custom Relationship Specialty Start Date End Date Jesusita Liu APRN PCP - General Nurse Practitioner-Family 04/18/19
--- OUTSIDE RECORDS SUMMARY | 2025-03-18 12:20 | XMS_ITS | Clinical Summary ---
Author Organization [facility] ([place] Address [address] [place] [address] Care Team Providers Care Director Equipment Name Role Phone Unavailable Primary Care Provider Unavailabl e Social History Tobacco Use Types Packs/Day Years Used Date Smoking Tobacco: Never Assessed Comments Unknown Sex and Gender Information Value Date Recorded Sex Assigned at Unknown 03/01/2022 6:34 PM CDT Legal Sex Female 6:34 PM CDT Gender Identity Not on file Sexual Orientation Not on file Plan of Treatment Not on file
--- OUTSIDE RECORDS SUMMARY | 2025-03-18 12:20 | XMS_ITS | Referral Summary ---
Author Organization [facility] ([place] Address [address] [place] [address] Care Team Providers Care Director Of Rotc Name Role Phone Unavailable Primary Care Provider [...]
--- OUTSIDE RECORDS SUMMARY | 2025-03-18 12:21 | XMS_ITS | Clinical Summary ---
Author Organization [facility] Address [address] [place] [address] Care Team Providers Care Product Development Manager Name Role Phone Jesusita Liu APRN Primary Care Provider [phone] Social History Tobacco Use Types Packs/Day Years Used Date Smoking Tobacco: Every Day Comments Unknown Sex and Gender Information Value Date Recorded Sex Assigned at Not on file Legal Sex Female 6:36 PM EDT Gender Identity Not on file Sexual Orientation Not on file Last Filed Vital Signs Vital Sign Reading Time Taken Comments Blood Pressure 136/89 06/10/2019 9:22 AM EDT Pulse 80 06/10/2019 9:22 AM EDT Temperature - - Respiratory Rate - - Oxygen Saturation - - Inhaled Oxygen Concentration - - Weight 68 kg (149 lb 14.6 oz) 06/10/2019 9:22 AM EDT Height 154.9 cm (5' 1 ) 06/10/2019 9:22 AM EDT Body Mass Index 28.33 06/10/2019 9:22 AM EDT Plan of Treatment Health Maintenance Due Date Last Done Comments [facility]-Depression Screening 1983 [facility]-/Child/Adol SDOH Screenings 1983 [facility]-Varicella Vaccines (1 of 2 - 13+ 2-dose series) 01/14/1996 HPV Vaccines (1 - 3-dose series) 1998 [facility]- SDOH Screenings 2001 [facility]-Adult SDOH Screenings 2001 [facility]-DTaP,Tdap,and Td Vaccines (1 - Tdap) 2002 [facility]-Hepatitis B Vaccines (1 of 3 - 19+ 3-dose series) 2002 [facility]-Pap Smear 01/14/2004 [facility]-Cervical Cancer Screening 2013 [facility]-HPV/Cotest 2013 LER-REFWU-00 Vaccine ( season) 2024 09/07/2021, 12/18/2020, 11/11/2020 [facility]-Influenza Vaccine (#1) 05/05/202505/25, 05/09/2018, 06/03/2017, Additional history exists [facility]-Zoster Vaccines (1 of 2) 2033 [facility]-HIB Vaccines Aged Out No longer e ligible based on patient's age to complete this topic [facility]-Hepatitis A Vaccines Aged Out No longer eligible based on patient's age to complete this topic [facility]-IPV Vaccines Aged Out No longer e ligible based on patient's age to complete this topic [facility]-Pneumococcal Vaccine: Pediatrics (0 to 5 Years) and At-Risk Patients (6 to 49 Years) Aged Out No longer eligible based on patient's age to complete this topic [facility]-Rotavirus Vaccines Aged Out No lo nger eligible based on patient's age to complete this topic Care Teams Product Development Manager Relationship Specialty Start Date End Date Jesusita Liu APRN [address] [place] [address] PCP - General 12/31/21
== END 2025-03-17 23:59 | disposition home or self-care (01) ==
LOC: LAB.DROPOF 03-18 12:18
PROVIDERS: PCP Nurse Practitioner Family; Visit Provider Nurse Practitioner Family
DX: G47.33 Obstructive sleep apnea (adult) (pediatric) (principal); E11.9 Type 2 diabetes mellitus without complications; F41.9 Anxiety disorder, unspecified; E78.5 Hyperlipidemia, unspecified; I10 Essential (primary) hypertension; R41.3 Other amnesia
CPT/HCPCS: 80053; 80061; 83036; 84439; 84443